=== PATIENT | female | born 1950 | race Caucasian/White ===

== ENCOUNTER 2020-05-04 07:04 | Outpatient (REF) | payer MEDICARE, SELFPAY ==
[2020-05-04 08:09] LABS: Alanine Aminotransferase 10 U/L (0-31); Anion Gap 9 (12-20); Aspartate Amino Transferase 18 U/L (5-31); Blood Urea Nitrogen 22 mg/dL (9-16); Calcium 8.7 mg/dL (8.4-10.2); Carbon Dioxide 32 mmol/L (22-29); Chloride 102 mmol/L (96-108); Cholesterol 208 mg/dL; Estimated Glomerular Filt Rate > 60; Glucose Fasting 108 mg/dL (60-99); HDL Cholesterol 60 mg/dL; LDL Cholesterol Calculated 132 mg/dl; Potassium 4.1 mmol/L (3.3-5.1); Sodium 139 mmol/L (135-145); Triglycerides 82 mg/dL
[2020-05-04 08:26] LABS: Vitamin D 25-OH Total 44.3 ng/mL (>30)
== END 2020-05-04 07:05 | disposition home or self-care (01) ==
LOC: HO.LAB 07:04
PROVIDERS: PCP Internal Medicine; Visit Provider Internal Medicine
DX: E78.5 Hyperlipidemia, unspecified (principal); M81.0 Age-related osteoporosis without current pathological fracture; I10 Essential (primary) hypertension
CPT/HCPCS: 36415; 80048; 80061; 82306; 84450; 84460

== ENCOUNTER 2020-10-02 09:35 | Outpatient (REF) | payer MEDICARE, SELFPAY ==
--- NOTE | ~2020-10-02 | MM_ITS ---
EXAMINATION: MM SCREENING DIGITAL BREAST TOMOSYNTHESIS, BILATERAL CLINICAL INFORMATION: Screening. Asymptomatic. The lifetime risk of breast cancer based on the Tyrer-Cuzick Model is 12%. COMPARISON: Mammography: 09/27/2019, 07/05/2018, 07/01/2017 TECHNIQUE: Digital breast tomosynthesis is performed in both the craniocaudal and mediolateral oblique views along with computer-aided detection (CAD). Synthesized 2D images are generated from the tomosynthesis. Additional exaggerated right CC view is provided. FINDINGS: The breasts are heterogeneously dense, which may obscure small masses (ACR BI-RADS breast composition Category c). There are no significant masses, abnormal calcifications, or other abnormalities. Parenchymal pattern is similar to prior studies. There is biopsy clip marker again noted mid 1:00 left breast. There are scattered coarse and some punctate round calcifications again noted. No significant changes. The axilla and skin contours are unremarkable. MM/MM tomosynthesis screening BI IMPRESSION: No mammographic evidence of malignancy. ASSESSMENT: BI-RADS 2: Benign RECOMMENDATION: Routine annual mammography screening. This patient's information was entered into a reminder system with a target due date for their next mammogram.
--- NOTE | ~2020-10-02 | MM_ITS ---
EXAMINATION: BONE DENSITOMETRY CLINICAL INDICATION: Age-related osteoporosis without current pathological fracture. COMPARISON: Previous BD dated 07/05/2018 and baseline BD dated 12/02/2007. TECHNIQUE: Using a inContact DXA System (software version: 13.1) manufactured by [employer], dual-energy x-ray absorptiometry was performed of the lumbar spine and left hip. The images are of good technical quality. Summary results are attached. FINDINGS: AP SPINE L1-L2 (excluding L3 and L4): The data of L1-L4 has been changed to exclude the L3 and L4 vertebral bodies, because degenerative changes at these levels may cause overestimation of lumbar spine density. Current: BMD 0.787 g/cm2, Z-score -1.8, T-score -3.2, osteoporosis, 7.3% decrease from previous, 13.9% decrease from baseline (<5% change is not significant). Prior: BMD 0.849 g/cm2. Baseline: BMD 0.914 g/cm2. LEFT FEMUR, NECK: Current: BMD 0.683 g/cm2, Z-score -1.1, T-score -2.6, osteoporosis. Prior: BMD 0.729 g/cm2. Baseline: BMD 0.797 g/cm2. LEFT FEMUR, TOTAL: Current: BMD 0.692 g/cm2, Z-score -1.4, T-score -2.5, osteoporosis, 6.6% decrease from previous, 12.0% decrease from baseline (<5% change is not significant). Prior: BMD 0.741 g/cm2. Baseline: BMD 0.786 g/cm2. IDENTIFIED RISK FACTORS: Osteoporosis, height loss, menopause. HISTORY OF FRACTURE: None listed. MEDICATIONS: Vitamin D, ERT/SERMS. MM/XR DEXA axial skeleton IMPRESSION: 1. DIAGNOSIS: Osteoporosis based on the lowest T-score value of -3.2 in the lumbar spine applying World Health Organization criteria. 2. 10-YEAR FRACTURE RISK PREDICTION, FRAX: Major osteoporotic fracture (clinical spine, forearm, hip or shoulder) 14.5%. Hip fracture 3.5%. 3. Treatment Recommendations: NOF guidelines recommend consideration for treatment in postmenopausal women and men age 50 and older presenting with the following: -A hip or vertebral (clinical or morphometric) fracture. -T-score less than or equal to -2.5 at the femoral neck or spine after appropriate evaluation to exclude secondary causes. -Low bone mass at the hip or spine and a 10-year fracture probability by FRAX of greater than or equal to 3% for hip fracture or greater than or equal to 20% for major osteoporotic fracture based on the [place] adapted WHO algorithm. 4. Other Recommendations: All treatment decisions require clinical judgment and consideration of individual patient factors, including patient preferences, comorbidities, previous drug use, risk factors not captured in the FRAX model (e.g. frailty, falls, vitamin D deficiency, increased bone turnover, interval significant decline in bone density) and possible under or overestimation of fracture risk by FRAX. Additional medical evaluation for secondary cause of low bone mineral density may be appropriate. FUTURE SCAN RECOMMENDATION: People with diagnosed cases of osteoporosis or at high risk for fracture should have regular bone mineral density tests. For patients eligible for Medicare, routine testing is allowed once every 2 years. The testing frequency can be increased to one year for patients who have rapidly progressing disease, those who are receiving or discontinuing medical therapy to restore bone mass, or have additional risk factors.
== END 2020-10-02 09:36 | disposition home or self-care (01) ==
LOC: HO.MAMMO 09:35
PROVIDERS: Visit Provider Internal Medicine
DX: Z12.31 Encounter for screening mammogram for malignant neoplasm of breast (principal); Z13.820 Encounter for screening for osteoporosis; M81.0 Age-related osteoporosis without current pathological fracture; Z78.0 Asymptomatic menopausal state; Z79.899 Other long term (current) drug therapy
CPT/HCPCS: 77063; 77067; 77080

== ENCOUNTER 2020-11-08 07:16 | Outpatient (REF) | payer MEDICARE, SELFPAY ==
[2020-11-08 11:34] LABS: Cholesterol 193 mg/dL; Glucose Fasting 80 mg/dL (60-99); HDL Cholesterol 48 mg/dL; LDL Cholesterol Calculated 123 mg/dl; Triglycerides 111 mg/dL
== END 2020-11-08 07:17 | disposition home or self-care (01) ==
LOC: HO.HMGCLDS 07:16
PROVIDERS: PCP Internal Medicine; Visit Provider Internal Medicine
DX: E78.5 Hyperlipidemia, unspecified (principal); M81.0 Age-related osteoporosis without current pathological fracture; R73.01 Impaired fasting glucose; Z78.0 Asymptomatic menopausal state
CPT/HCPCS: 36415; 80061; 82306; 82947

== ENCOUNTER 2021-03-09 19:50 | Emergency (ER) | payer MEDICARE, SELFPAY ==
[2021-03-09 20:19] VITALS: BP 109/74; PULSE 90; RESP 18; TEMP 36.6; O2SAT 99; BMI 25.9
--- NOTE | 2021-03-09 21:11 | ED_ITS ---
HPI - Eye Problem General Chief complaint: Eye Problems Stated complaint: eye contact in right eye Time Seen by Provider: 03/09/21 20:58 Source: patient Mode of arrival: ambulatory Limitations: no limitations History of Present Illness HPI Narrative: patient comes to the ED c/o having a hard contact lense stuck in her eye. Patient states that this is a new contact lens. Patient try using the suction cup to remove it but has unable to do so patient denies any pain, just the discomfort of the contact lens. Related Data Home Medications Medication Instructions Recorded Confirmed cholecalciferol (vitamin D3) 25 25 mcg PO DAILY 05/07/20 11/12/20 mcg (1,000 unit) capsule vit A 1,000 unit-C 200 mg-E 60 1 tab PO DAILY 05/07/20 11/12/20 unit-lutein 2 mg and minerals tablet (I-Viraj) multivitamin 1 tab PO DAILY 11/12/20 11/12/20 Previous Rx's Medication Instructions Recorded raloxifene 60 mg tablet 60 mg PO DAILY #90 tab 08/06/20 ofloxacin 0.3 % eye drops (Ocuflox) 1 drp OPHTHALMIC (EYE) QID #5 ml 03/09/21 Allergies Allergy/AdvReac Type Severity Reaction Status Date / Time No Known Allergies Allergy Verified 11/12/20 09:55 Review of Systems Review of Systems: Constitutional : No Weight loss, No Fever, No Chills, No Night Sweats, No Fatigue, No Malaise ENT/Mouth : No Hearing loss, No Ear Pain, No Nasal Congestion, No Sinus Pain, No Hoarseness, No sore throat, No Rhinorrhea, No Swallowing Difficulty Eyes: No Eye Pain, No Swelling, redness in the right eye, difficult to visualize the contact lens Cardiovascular : No Chest Pain, No SOB, No Dyspnea on Exertion, No Orthopnea, No Edema, No Palpitations Respiratory : No Cough, No Sputum, No Wheezing, No Smoke Exposure, No Dyspnea Gastrointestinal : No Nausea, No Vomiting, No Diarrhea, No Constipation, No abdo chica Pain, No Hematochezia, No Melena Genitourinary : no irregular bleeding, No Dysuria, No Urinary Frequency, No Hematuria, No Urinary Incontinence, No Urgency, No Flank Pain, No Urinary Flow Changes, No Hesitancy Musculoskeletal : No joint pain, No Myalgias, No Joint Swelling Skin : No Skin Lesions, No rash Neuro : No Weakness, No Numbness, No Paresthesias, No Loss of Consciousness, No Dizziness, No Headache Psych : No Anxiety/Panic, No Depression, No SI/HI/AH/VH, No Social Issues, Heme/Lymph: No Bruising, No Bleeding,No Lymphadenopathy Endocrine : No Polyuria, No Polydipsia, No Temperature Intolerance [facility] Past Medical History Medical History Dyslipidemia Essential tremor Impaired fasting glucose Keratoconus of both eyes Osteoporosis Surgical History History of bilateral breast biopsy Family History Family History (Updated 11/12/20 @ 09:36 by Lalitha Uribe CMA) Father CAD (coronary artery disease) Acute myocardial infarction Mother Breast cancer Uterine cancer Hypothyroidism Sister HTN (hypertension) Maternal Uncle Diabetes mellitus Paternal Uncle Diabetes mellitus Social History Social History (Updated 05/06/20 @ 09:52 by Lalitha Uribe CMA) Housing: House Alcohol intake: never Patient Tobacco Use Status: Never used Tobacco e-Cigarette/Vaping Use: Never Used Second Hand Smoke Exposure: No Advance Directives: No Advance Directives Information Provided: Yes service: No Current occupational status: retired Physical Exam Vital Signs: Vital Signs: Last Vital Signs Temp 97.8 F 03/09/21 20:19 Pulse 90 03/09/21 20:19 Resp 18 03/09/21 20:19 BP 109/74 03/09/21 20:19 Pulse Ox 99 03/09/21 20:19 BMI result Body Mass Index 25.9 Const: Other: Appearance: Alert. Oriented X3. No acute distress. Eyes: Pupils equal, round and reactive to light. Right eye balls conjunctival injection, seems that pt is developing conjunctivities. Fluorescein stain was applied to the eye, I do not see the more of a contact lens I do not think the contact lens it is in the eye ENT: Pharynx normal. Neck: Normal inspection. Neck supple. No lymph nodes noted. No crepitus CVS: Normal heart rate and rhythm. Pulses normal. Normal S1 and S2 Respiratory: No respiratory distress. Breath sounds normal. No Wheezing. No rales Abdomen: Soft and nontender. No rigidity. No distention. good BS x4 Skin: Skin warm and dry. Normal skin color. Normal skin turgor. Extremities: No lower extremity edema. No lower extremity edema. No Lacerations. No Rash Neuro: Oriented X 3. No motor deficit. No sensory deficit. Moving all extermities. No slurred speech. Course Course Course Narrative: I discussed with the patient that I could not visualize the contact lens in her eye. Patient is adamant that full contact lens is in her eye. However, patient states that her vision is at baseline, just when she does not have contact lenses in. Patient will follow-up with her customer security clerk tomorrow. Ofloxacin was sent to patient's pharmacy Discharge Plan Discharge Clinical Impression: Conjunctivitis, Sensation of foreign body in eye Patient Disposition: Home, Self-Care Instructions: Conjunctivitis (ED) Additional Instructions: Please follow-up with your of customer security clerk and primary care physician tomorrow. If you have any worsening or new symptoms, please return to the emergency room or call 911 Prescriptions: New ofloxacin [Ocuflox] 0.3 % drops 1 drp ophthalmic (eye) QID Qty: 5 RF: 0 No Action raloxifene 60 mg tablet 60 mg PO DAILY Qty: 90 RF: 2 cholecalciferol (vitamin D3) 25 mcg (1,000 unit) capsule 25 mcg PO DAILY RF: 0 I-Viraj 1,000 unit-200 mg-60 unit-2 mg tablet 1 tab PO DAILY RF: 0 multivitamin Tablet 1 tab PO DAILY RF: 0
[2021-03-09] MEDS: Tetracaine HCl/PF 0.5% Oph Sol 4 ML DROPS 3 DROP EYE-RIGHT (21:35)
[2021-03-09] MEDS: Fluorescein Sodium STRIP 1 STRIP EYE-RIGHT (21:36)
== END 2021-03-09 21:59 | disposition home or self-care (01) ==
PROVIDERS: Emergency Provider Emergency Medicine; PCP Internal Medicine
DX: H10.9 Unspecified conjunctivitis (principal)
CPT/HCPCS: 99283

== ENCOUNTER 2021-10-03 10:10 | Outpatient (REF) | payer MEDICARE, SELFPAY ==
--- NOTE | ~2021-10-03 | MM_ITS ---
EXAMINATION: MM SCREENING DIGITAL BREAST TOMOSYNTHESIS, BILATERAL CLINICAL INFORMATION: Screening. Asymptomatic. The lifetime risk of breast cancer based on the Tyrer-Cuzick Model is 12%. COMPARISON: Mammography: 10/02/2020, 03/29/2019, 07/05/2018 TECHNIQUE: Digital breast tomosynthesis is performed in both the craniocaudal and mediolateral oblique views along with computer-aided detection (CAD). Synthesized 2D images are generated from the tomosynthesis. FINDINGS: The breasts are heterogeneously dense, which may obscure small masses (ACR BI-RADS breast composition Category c). There are no significant masses, abnormal calcifications, or other abnormalities. There is biopsy clip marker again seen 12:30 o'clock position left breast. There are benign grouped coarse calcifications central right breast. Other scattered benign round calcifications are again seen. No significant changes. MM/MM tomosynthesis screening BI IMPRESSION: No mammographic evidence of malignancy. ASSESSMENT: BI-RADS 2: Benign RECOMMENDATION: Routine annual mammography screening. This patient's information was entered into a reminder system with a target due date for their next mammogram.
== END 2021-10-03 10:11 | disposition home or self-care (01) ==
LOC: HO.MAMMO 10:10
PROVIDERS: PCP Internal Medicine; Visit Provider Internal Medicine
DX: Z12.31 Encounter for screening mammogram for malignant neoplasm of breast (principal)
CPT/HCPCS: 77063; 77067

== ENCOUNTER 2021-11-13 06:36 | Outpatient (REF) | payer MEDICARE, SELFPAY ==
[2021-11-13 12:20] LABS: Estimated Average Glucose 100 mg/dL; Hemoglobin A1c % 5.1 %
[2021-11-13 12:39] LABS: Alanine Aminotransferase 10 U/L (0-31); Aspartate Amino Transferase 16 U/L (5-31); Cholesterol 211 mg/dL; Glucose Fasting 84 mg/dL (60-99); HDL Cholesterol 50 mg/dL; LDL Cholesterol Calculated 141 mg/dl; Triglycerides 100 mg/dL
[2021-11-13 12:47] LABS: Vitamin D 25-OH Total 47.4 ng/mL (>30)
== END 2021-11-13 06:37 | disposition home or self-care (01) ==
LOC: HO.HMGCLDS 06:36
PROVIDERS: PCP Internal Medicine; Visit Provider Internal Medicine
DX: M81.0 Age-related osteoporosis without current pathological fracture (principal); N95.8 Other specified menopausal and perimenopausal disorders; R73.01 Impaired fasting glucose; E78.5 Hyperlipidemia, unspecified
CPT/HCPCS: 36415; 80061; 82306; 82947; 83036; 84450; 84460

== ENCOUNTER 2022-10-08 09:43 | Outpatient (REF) | payer MEDICARE, SELFPAY ==
--- NOTE | ~2022-10-08 | MM_ITS ---
EXAMINATION: BONE DENSITOMETRY CLINICAL INDICATION: Age-related osteoporosis without current pathological fracture. COMPARISON: Previous BD dated 10/02/2020 and baseline BD dated 12/02/2007. TECHNIQUE: Using a [employer]ference DXA System (software version: 13.1) manufactured by [employer], dual-energy x-ray absorptiometry was performed of the lumbar spine and left hip. The images are of good technical quality. Summary results are attached. FINDINGS: LEFT FEMUR, NECK: Current: BMD 0.689 g/cm2, Z-score -1.1, T-score -2.5, osteoporosis. Prior: BMD 0.683 g/cm2. Baseline: BMD 0.797 g/cm2. LEFT FEMUR, TOTAL: Current: BMD 0.709 g/cm2, Z-score -1.2, T-score -2.4, osteopenia, 2.5% increase from previous, 9.8% decrease from baseline (<5% change is not significant). Prior: BMD 0.692 g/cm2. Baseline: BMD 0.786 g/cm2. AP SPINE L1-L4: Current: BMD 1.015 g/cm2, Z-score -0.1, T-score -1.4, osteopenia, 5.5% increase from previous, 7.3% decrease from baseline (<5% change is not significant). Prior: BMD 0.962 g/cm2. Baseline: BMD 1.095 g/cm2. IDENTIFIED RISK FACTORS: Osteoporosis, height loss, menopause. HISTORY OF FRACTURE: None listed. MEDICATIONS: Multivitamins. MM/XR DEXA axial skeleton IMPRESSION: 1. DIAGNOSIS: Osteoporosis based on the lowest T-score value of -2.5 in the femoral neck applying World Health Organization criteria. 2. 10-YEAR FRACTURE RISK PREDICTION, FRAX: According to the guidelines, FRAX calculation should only be performed on patients in the osteopenia bone density category. Therefore, FRAX was not performed on this patient. 3. Treatment Recommendations: NOF guidelines recommend consideration for treatment in postmenopausal women and men age 50 and older presenting with the following: -A hip or vertebral (clinical or morphometric) fracture. -T-score less than or equal to -2.5 at the femoral neck or spine after appropriate evaluation to exclude secondary causes. -Low bone mass at the hip or spine and a 10-year fracture probability by FRAX of greater than or equal to 3% for hip fracture or greater than or equal to 20% for major osteoporotic fracture based on the [place] adapted WHO algorithm. 4. Other Recommendations: All treatment decisions require clinical judgment and consideration of individual patient factors, including patient preferences, comorbidities, previous drug use, risk factors not captured in the FRAX model (e.g. frailty, falls, vitamin D deficiency, increased bone turnover, interval significant decline in bone density) and possible under or overestimation of fracture risk by FRAX. Additional medical evaluation for secondary cause of low bone mineral density may be appropriate. FUTURE SCAN RECOMMENDATION: People with diagnosed cases of osteoporosis or at high risk for fracture should have regular bone mineral density tests. For patients eligible for Medicare, routine testing is allowed once every 2 years. The testing frequency can be increased to one year for patients who have rapidly progressing disease, those who are receiving or discontinuing medical therapy to restore bone mass, or have additional risk factors.
--- NOTE | ~2022-10-08 | MM_ITS ---
EXAMINATION: MM SCREENING DIGITAL BREAST TOMOSYNTHESIS, BILATERAL CLINICAL INFORMATION: Screening. Asymptomatic. The lifetime risk of breast cancer based on the Tyrer-Cuzick Model is 13.1%. COMPARISON: Mammography: This study is compared with prior exams dating back to 2019. TECHNIQUE: Digital breast tomosynthesis is performed in both the craniocaudal and mediolateral oblique views along with computer-aided detection (CAD). Synthesized 2D images are generated from the tomosynthesis. FINDINGS: There are scattered areas of fibroglandular density (ACR BI-RADS breast composition Category b). There is a tissue marker in the left breast from prior benign percutaneous biopsy. There are a few, unchanged, coarse, benign calcifications in the central portion of the right breast. There are no significant masses, abnormal calcifications, or other abnormalities. MM/MM tomosynthesis screening BI IMPRESSION: No mammographic evidence of malignancy. ASSESSMENT: BI-RADS BI-RADS 2 - Benign Findings RECOMMENDATION: Routine annual mammography screening. 1 year F/U This examination should not preclude the clinical evaluation of a suspicious palpable abnormality. This patient's information was entered into a reminder system with a target due date for their next mammogram.
== END 2022-10-08 09:44 | disposition home or self-care (01) ==
LOC: HO.MAMMO 09:43
PROVIDERS: PCP Internal Medicine; Visit Provider Internal Medicine
DX: Z12.31 Encounter for screening mammogram for malignant neoplasm of breast (principal); Z13.820 Encounter for screening for osteoporosis; M81.0 Age-related osteoporosis without current pathological fracture; Z78.0 Asymptomatic menopausal state
CPT/HCPCS: 77063; 77067; 77080

== ENCOUNTER → 2022-10-08 10:30 | Outpatient (BNV) | payer MEDICARE, SELFPAY | PROVIDERS: PCP Internal Medicine; Visit Provider Radiology Diagnostic Radiology | DX: Z12.31 Encounter for screening mammogram for malignant neoplasm of breast (principal) | CPT/HCPCS: 77063; 77067; 77080 ==

== ENCOUNTER 2022-11-13 07:30 | Outpatient (REF) | payer MEDICARE, SELFPAY ==
[2022-11-13 11:53] LABS: Alanine Aminotransferase 10 U/L (0-31); Anion Gap 10 (12-20); Aspartate Amino Transferase 17 U/L (5-31); Blood Urea Nitrogen 19 mg/dL (9-16); Calcium 9.3 mg/dL (8.4-10.2); Carbon Dioxide 31 mmol/L (22-29); Chloride 103 mmol/L (96-108); Cholesterol 217 mg/dL (<200); Estimated Glomerular Filt Rate > 60; Glucose Fasting 81 mg/dL (60-99); HDL Cholesterol 50 mg/dL (>40); LDL Cholesterol Calculated 148 mg/dL (<100); Potassium 3.9 mmol/L (3.3-5.1); Sodium 140 mmol/L (135-145); Triglycerides 99 mg/dL (<150)
[2022-11-13 12:15] LABS: Vitamin D 25-OH Total 62.3 ng/mL (>30)
== END 2022-11-13 07:31 | disposition home or self-care (01) ==
LOC: HO.HMGCLDS 07:30
PROVIDERS: PCP Internal Medicine; Visit Provider Internal Medicine
DX: R73.01 Impaired fasting glucose (principal); M81.0 Age-related osteoporosis without current pathological fracture; E78.5 Hyperlipidemia, unspecified; Z78.0 Asymptomatic menopausal state
CPT/HCPCS: 36415; 80048; 80061; 82306; 84450; 84460

== ENCOUNTER 2022-11-17 10:46 | Outpatient (AMB) | payer MEDICARE, SELFPAY ==
--- NOTE | 2022-11-17 11:31 | A.OFFPC_ITS ---
Vital Signs 11/17/22 11:41 Height 5 ft 4 in Weight 169 lb BMI 29.0 BP 100/80 Blood Pressure Location Lt brachial Position Sitting Pulse 65 Pulse Source Pulse Oximeter Pulse Oximetry (%) 96 Oxygen Delivery Method Room Air Intake Visit Reasons: PE Intake Note: Pt is here today for her PE Allergies No Known Allergies Allergy (Verified 11/17/22 11:53) Medication List - Last Reconciled 11/17/22 by Aicha Fuentes MD multivitamin 1 tab PO DAILY multivitamin with iron (Daily Vites/Iron tablet) 1 tab PO DAILY primidone 50 mg PO BEDTIME vit A,C,X-U7-tado-szf-sds-eydp 1000 unit-300mg -100 unit-2 mg 1,000 unit-300mg - 100 unit-2 mg tabs PO Tobacco use date assessed: 11/17/22 Fall risk assessment: No Falls in past year Last assessed Fall Risk: 11/17/22 Dental Screening Dental Screen Date: 11/17/22 Did you have a dental visit in the last 12 months?: No Was dental information given to patient?: Patient has dentist HPI PE HPI Details 71-year-old lady here today for physical exam. She has osteoporosis previously on Reclast, has dyslipidemia, prediabetes and has essential tremors followed by [facility] neurology. She had recent bone density scan done October 08 which showed presence of mild osteoporosis in left femoral neck, and improving bone density in both left femur and lumbar spine. Has not had any recent fractures. She currently sees Dr. Brunson for deny exam, essential tremors are better on primidone, followed at [facility] neurology [facility] Medical History Keratoconus of both eyes Essential tremor Impaired fasting glucose Osteoporosis Dyslipidemia Surgical History History of bilateral breast biopsy Family History Father CAD (coronary artery disease) Acute myocardial infarction Mother Breast cancer Uterine cancer Hypothyroidism Sister HTN (hypertension) Maternal Uncle Diabetes mellitus Paternal Uncle Diabetes mellitus Social History Housing: House Alcohol intake: never Patient Tobacco Use Status: Never used Tobacco e-Cigarette/Vaping Use: Never Used Second Hand Smoke Exposure: No service: No Current occupational status: retired Cognitive needs: No Hearing needs: No Vision needs: No Questionnaire PHQ-9 Over the last 2 weeks, how often have you been bothered by any of the following problems? 1. Little interest or pleasure in doing things: not at all 2. Feeling down, depressed, or hopeless: not at all 3. Trouble falling or staying asleep, or sleeping too much: not at all 4. Feeling tired or having little energy: not at all 5. Poor appetite or overeating: not at all 6. Feeling bad about yourself - or that you are a failure or have let yourself or your family down: not at all 7. Trouble concentrating on things, such as reading the newspaper or watching television: not at all 8. Moving or speaking so slowly that other people could have noticed. Or the opposite - being so fidgety or restless that you have been moving around a lot more than usual: not at all 9. Thoughts that you would be better off or of hurting yourself in some way: not at all Total score: 0 Depression Screening Interpretation: Negative 63340 - PHQ-9 Billing: Yes Source: Developed by Drs. Myke Kamara, Olga Narayanan, Haja Hugo and colleagues, with an educational alecia from [employer]. Thrive Questionnaire Date Thrive assessed: 11/17/22 I am a: Patient What is your living situation today?: I have a steady place to live Within the past 12 months, did the food you bought not last and you didn't have the money to get more?: Never true Within the past 12 months, did you worry whether your food would run out before you got money to buy more?: Never true Do you have trouble paying for medicines?: No Do you have trouble getting transportation to medical appointments?: No Do you have trouble paying your heating and electricity bill?: No Do you have trouble taking care of your child, family member or friend?: No Do you have trouble with day-to-day activities such as bathing, preparing meals, shopping, managing finances, etc.?: No Are you currently unemployed and looking for a job?: No Are you interested in more education?: No AUDIT C Alcohol Use Questionnaire (AUDIT-C) 1. How often do you have a drink containing alcohol?: Never Total Score: 0 JASE-7 AMB Questionnaire JASE-7 Date JASE - 7 assessed: 11/17/22 Feeling nervous, anxious, or on edge: 0 = Not at all Not being able to stop or control worryin = Not at all Worrying too much about different things: 0 = Not at all Trouble relaxin = Not at all Being so restless that it is hard to sit still: 0 = Not at all Becoming easily annoyed or irritable: 0 = Not at all Feeling afraid as if something awful might happen: 0 = Not at all Total JASE-7 score (0-4 normal; 5-9 mild; 10-14 moderate; 15-21 severe): 0 Source: Developed by Drs. Myke Kamara, Olga Narayanan, Haja Hugo and colleagues, with an educational alecia from [employer]. Review of Systems Const Denies body aches, Denies fatigue, Denies fever(s), Denies headache(s) and Denies weakness ENT Reports Normal hearing present, Denies dizziness, Denies headache(s), Denies nasal congestion, Denies nasal discharge and Denies sore throat Card Denies chest pain, Denies lightheadedness, Denies palpitations and Denies dyspnea Resp Denies chest congestion, Denies cough, Denies dyspnea and Denies wheezing GI Denies abdominal pain, Denies change in bowel habits and Denies heartburn Reports no additional complaints Musc Denies back pain, Denies arthralgias, Denies joint swelling and Reports stiffness Skin/Breast Denies pruritus, Denies lesions, Denies new lesions, Denies rash, Denies unusual bruising and Denies wounds Neuro Reports Normal hearing present, Denies dizziness, Denies headache(s), Denies Sensory deficit (Neuro) and Denies weakness Psych Reports no additional complaints Endo Denies fatigue, Denies polydipsia, Denies polyuria and Denies palpitations [place]/Lymph Denies easy bruising Aller/Immun Denies seasonal rhinorrhea and Denies wheezing Physical exam (Primary Care) Vital Signs: Last Vital Signs Pulse 65 11/17/22 11:41 BP 100/80 11/17/22 11:41 Pulse Ox 96 11/17/22 11:41 Oxygen Delivery Method Room Air 11/17/22 11:41 BMI result Body Mass Index 29.0 Tobacco/Smoking Status: Tobacco use Status Tobacco use date assessed 11/17/22 11/17/22 11:33 Patient Tobacco Use Status Never used Tobacco 11/17/22 11:33 e-Cigarette/Vaping Use Never Used 11/17/22 11:33 PHQ-9: PHQ-9 Score PHQ-9: Total score 0 11/17/22 11:54 Depression Screening Interpretation: Negative Thrive Assessment: Date of Thrive Assessment Date Thrive assessed 11/17/22 11/17/22 11:42 Const General: cooperative, healthy appearing, comfortable and no acute distress Nutritional Appearance: overweight Orientation/consciousness: patient oriented x3 Limitations: no limitations HENMT Mouth: Normal oral and palatal mucosa present and moist mucous membranes Eyes General: appearance normal, both eyes and all related structures Neck Neck: Yes full ROM, Yes no lymphadenopathy and Yes supple Thyroid: Thyroid normal Chest Chest palpation & inspection: normal inspection of the chest Breast/axilla palpation: normal palpation of the breasts Resp Effort & Inspection: normal respiratory effort and able to speak in complete sentences Auscultation: clear to auscultation bilaterally Cardio Rate: regular rate Rhythm: regular rhythm Heart sounds: S1 normal heart sound present and S2 normal heart sound present GI Palpation (GI): Soft to palpation, nontender and no guarding Auscultation: normal bowel sounds Other: Declined pelvic exam Neuro General: patient oriented x3, gait normal, tone normal, moves all extremities, Normal light touch and pain sensation, no focal motor deficits and CN's II-XI intact bilaterally Cranial nerves: Yes Normal hearing present Sensory Exam: No Sensory deficit (Neuro) Extrem General: Yes full ROM, Yes no joint enlargement, Yes no pedal edema and Yes normal gait Psych Appearance: grossly normal and well kempt Mental Status: mental status grossly normal Speech and movement: Normal speech and movement present Affect: normal affect Attitude: cooperative Results Reviewed Results Reviewed: ENTERED: 11/13/22 JUANITO SMITH: ORDERED: Met Prof Fast, AST, ALT, Lipid Panel, Vitamin D 25-OH Test Result Flag Reference Site Sodium 140 135-145 mmol/L Potassium 3.9 3.3-5.1 mmol/L CL 103 96-108 mmol/L CO2 31 H 22-29 mmol/L Gap 10 L 12-20 BUN 19 H 9-16 mg/dL Creat 0.90 0.5-1.4 mg/dL EGFR > 60 NOTE: For -[place]i individuals, multiply the result by 1.210. Chronic Kidney Disease: Estimated GFR < 60 mL/min/1.73m2 Severe Kidney Disease: Estimated GFR < 15 mL/min/1.73m2 FBS 81 60-99 mg/dL CA 9.3 # 8.4-10.2 mg/dL AST (GOT) 17 5-31 U/L ALT (GPT) 10 0-31 U/L Triglyceride 99 <150 mg/dL Desirable Triglyceride: less than 150 mg/dL Borderline High Triglyceride 150-199 mg/dL High Triglyceride: 200-499 mg/dL Very High Triglyceride: greater than or equal to 5OO mg/dL Cholesterol 217 H <200 mg/dL Desirable Cholesterol: less than 200 mg/dL Borderline High Cholesterol: 200-239 mg/dL High Cholesterol: greater than 239 mg/dL LDL Calculated 148 H <100 mg/dL Desirable LDL: less than 100 mg/dL Near Optimal/Above Optimal LDL: 110-129 mg/dL Borderline High LDL: 130-159 mg/dL High LDL: 160-189 mg/dL Very High LDL: greater than or equal to 190 mg/dL HDL 50 >40 mg/dL Desirable HDL: greater than 40 mg/dL Note: This HDL assay may give artificially low results in patients with liver disease. Vit D 25-OH Tot 62.3 >30 ng/mL Health Based Reference Values* < 20 ng/mL Deficient 20-30 ng/mL Insufficient > 30 ng/mL Sufficient Assessment and Plan Assessment & Plan (1) Keratoconus of both eyes: Code(s): H18.603 - Keratoconus, unspecified, bilateral Plan: Sees Dr. Brunson (2) Essential tremor: Code(s): G25.0 - Essential tremor Plan: Currently controlled with (3) Impaired fasting glucose: Code(s): R73.01 - Impaired fasting glucose (4) Osteoporosis: Code(s): M81.0 - Age-related osteoporosis without current pathological fracture Plan: Improving bone density seen on recent bone density scan. Continue with doing regular weight-bearing exercise, take adequate calcium from dietary sources, and continue with taking vitamin-D 3 supplements at least 2000 units daily. Will repeat another bone density scan next year together with next screening mammogram in October 2023 (5) Dyslipidemia: Code(s): E78.5 - Hyperlipidemia, unspecified Plan: Reviewed recent fasting lipid profile with patient with higher levels of LDL cholesterol as compared to last check . Continue with following a low- cholesterol diet and regular exercise, at least 30 minutes 3 to 4 times a week. Advised patient to make healthy food choices, eat more fruits, vegetables, whole grains, wild caught fish and low-fat dairy. Limit amount of meat and fried or fatty food products, as well as processed foods and fast foods. Follow-up scheduled with repeat fasting lipid panel in months. (6) Annual visit for general adult medical examination with abnormal findings: Code(s): Z00. - Encounter for general adult medical examination with abnormal findings Plan: Reviewed recent fasting lab results with patient. Continue regular dental visit every 6 months and regular eye exams, at least every 2 years. Take adequate calcium in diet and vitamin-D 3 at 2000 IU per cap once a day, in addition to weight-bearing exercises to help maintain good muscle tone and weight control. Instructed to do self-breast exam, and continue with yearly mammogram, currently up-to-date. Up-to-date with her bone density scan done 10/08/2022 which showed improvement in her bone density in her lumbar spine and left femur, currently off Reclast. Reminded to get her COVID booster and yearly flu shot, up-to-date with her pneumonia vaccine, Tdap and shingles vaccination Coding Level of Care Code Est Pt Prev Care >65y(20293) Diagnoses Keratoconus of both eyes H18.603 Essential tremor G25.0 Impaired fasting glucose R73.01 Osteoporosis M81.0 Dyslipidemia E78.5 Annual visit for general adult medical examination with abnormal findings Z00.01
[2022-11-17 11:41] VITALS: BP 100/80; PULSE 65; O2SAT 96; BMI 29.0
== END 2022-11-17 12:14 | disposition home or self-care (01) ==
PROVIDERS: Visit Provider Internal Medicine
DX: H18.603 Keratoconus, unspecified, bilateral (principal); G25.0 Essential tremor; R73.01 Impaired fasting glucose; M81.0 Age-related osteoporosis without current pathological fracture; E78.5 Hyperlipidemia, unspecified; Z00.01 Encounter for general adult medical examination with abnormal findings
CPT/HCPCS: 99397

== ENCOUNTER 2023-10-13 09:39 | Outpatient (REF) | payer MEDICARE, SELFPAY ==
--- NOTE | ~2023-10-13 | MM_ITS ---
EXAMINATION: MM SCREENING DIGITAL BREAST TOMOSYNTHESIS, BILATERAL CLINICAL INFORMATION: Screening. Asymptomatic. COMPARISON: Mammography: This study is compared with prior exams dating back to 2019. TECHNIQUE: Digital breast tomosynthesis is performed in both the craniocaudal and mediolateral oblique views along with computer-aided detection (CAD). Synthesized 2D images are generated from the tomosynthesis. FINDINGS: The breasts are heterogeneously dense, which may obscure small masses (ACR BI-RADS breast composition Category c). There are no significant masses, abnormal calcifications, or other abnormalities. There is a biopsy tissue marker in the left breast. Few, bilateral, coarse, benign calcifications are present. MM/MM tomosynthesis screening BI IMPRESSION: No mammographic evidence of malignancy. ASSESSMENT: BI-RADS BI-RADS 2 - Benign Findings RECOMMENDATION: Routine annual mammography screening. 1 year F/U This examination should not preclude the clinical evaluation of a suspicious palpable abnormality. This patient's information was entered into a reminder system with a target due date for their next mammogram.
== END 2023-10-13 09:40 | disposition home or self-care (01) ==
LOC: HO.MAMMO 09:39
PROVIDERS: PCP Internal Medicine; Visit Provider Internal Medicine
DX: Z12.31 Encounter for screening mammogram for malignant neoplasm of breast (principal)
CPT/HCPCS: 77063; 77067

== ENCOUNTER → 2023-10-13 10:00 | Outpatient (BNV) | payer MEDICARE, SELFPAY | PROVIDERS: PCP Internal Medicine; Visit Provider Radiology Diagnostic Radiology | DX: Z12.31 Encounter for screening mammogram for malignant neoplasm of breast (principal) | CPT/HCPCS: 77063; 77067 ==

== ENCOUNTER 2023-12-01 08:18 | Outpatient (AMB) | payer MEDICARE, SELFPAY ==
--- NOTE | 2023-12-01 08:34 | MHC.PC.OV ---
Vital Signs 12/01/23 08:42 Height 5 ft 3 in Weight 175 lb BMI 31.0 BP 106/70 Blood Pressure Location Lt brachial Position Sitting Pulse 100 Pulse Source Pulse Oximeter Pulse Oximetry (%) 95 Oxygen Delivery Method Room Air Intake Visit Reasons: PE Intake Note: Pt is here today for her PE Last mammogram 10/13/23, bone density scan 10/08/22, cologuard 01/23/22 Allergies No Known Allergies Allergy (Verified 12/01/23 08:54) Medication List - Last Reconciled 12/01/23 by Aicha Fuentes MD multivitamin with iron (Daily Vites/Iron tablet) 1 tab PO DAILY primidone 50 mg PO BEDTIME vit A,C,T-A9-tnwg-ipl-soi-obyj 1000 unit-300mg -100 unit-2 mg 1,000 unit-300mg -100 unit-2 mg tabs PO Tobacco use date assessed: 12/01/23 Fall risk assessment: No Falls in past year Last assessed Fall Risk: 12/01/23 Dental Screening Dental Screen Date: 12/01/23 Did you have a dental visit in the last 12 months?: No Did you have a dental problem in the last 6 months where you did not have access to dental care?: No Was dental information given to patient?: Patient has dentist HPI PE HPI Details 72 year-old lady here today for physical exam. She has osteoporosis and received Reclast 07/2021, as well as alendronate in distant past, with last bone density scan done October 08 showing presence of mild osteoporosis in left femoral neck, and improving bone density in both left femur and lumbar spine. Has not had any recent fractures . Repeat bone density due again in 2024. She was being seen at [facility] who recommended that that since results were stable, no further medical treatment at this time and would recommend a follow-up bone density every 2 years. .She has dyslipidemia, prediabetes , and has essential tremors, better on primidone, followed by [facility] neurology. She currently sees Dr. Brunson for her eye exam and follow-up of her keratoconus, and was told that she is beginning cataracts in her eyes Her last mammogram was 10/13/23, bone density scan 10/08/22. She also has had an InSure One Fecal Globin test done 01/21/2022 which came back negative, and a Cologuard test done in 09/24/2021 which came back negative.. [facility] Medical History Keratoconus of both eyes Essential tremor Impaired fasting glucose Osteoporosis Dyslipidemia Surgical History History of bilateral breast biopsy Family History Father CAD (coronary artery disease) Acute myocardial infarction Mother Breast cancer Uterine cancer Hypothyroidism Sister HTN (hypertension) Maternal Uncle Diabetes mellitus Paternal Uncle Diabetes mellitus Social History Housing: House Alcohol intake: never Patient Tobacco Use Status: Never used Tobacco e-Cigarette/Vaping Use: Never Used Second Hand Smoke Exposure: No service: No Current occupational status: retired Cognitive needs: No Hearing needs: No Vision needs: No Questionnaire PHQ-9 Over the last 2 weeks, how often have you been bothered by any of the following problems? 1. Little interest or pleasure in doing things: not at all 2. Feeling down, depressed, or hopeless: not at all 3. Trouble falling or staying asleep, or sleeping too much: not at all 4. Feeling tired or having little energy: not at all 5. Poor appetite or overeating: not at all 6. Feeling bad about yourself - or that you are a failure or have let yourself or your family down: not at all 7. Trouble concentrating on things, such as reading the newspaper or watching television: not at all 8. Moving or speaking so slowly that other people could have noticed. Or the opposite - being so fidgety or restless that you have been moving around a lot more than usual: not at all 9. Thoughts that you would be better off or of hurting yourself in some way: not at all Total score: 0 Depression Screening Interpretation: Negative Depression Screening Done: Yes 65436 - PHQ-9 Billing: Yes Source: Developed by Drs. Myke Kamara, Olga Narayanan, Haja Hugo and colleagues, with an educational alecia from [employer]. Thrive Questionnaire Date Thrive assessed: 12/01/23 I am a: Patient What is your living situation today?: I have a steady place to live Within the past 12 months, did the food you bought not last and you didn't have the money to get more?: Never true Within the past 12 months, did you worry whether your food would run out before you got money to buy more?: Never true Do you have trouble paying for medicines?: No Do you have trouble getting transportation to medical appointments?: No Do you have trouble paying your heating and electricity bill?: No Do you have trouble taking care of your child, family member or friend?: No Do you have trouble with day-to-day activities such as bathing, preparing meals, shopping, managing finances, etc.?: No Are you interested in more education?: No Please select the resources that you would like help with: None Currently or been in a relationship where the following occur: No concerns reported THRIVE Score: 0 AUDIT C Alcohol Use Questionnaire (AUDIT-C) 1. How often do you have a drink containing alcohol?: Never Total Score: 0 JASE-7 AMB Questionnaire JASE-7 Date JASE - 7 assessed: 12/01/23 Feeling nervous, anxious, or on edge: 0 = Not at all Not being able to stop or control worryin = Not at all Worrying too much about different things: 0 = Not at all Trouble relaxin = Not at all Being so restless that it is hard to sit still: 0 = Not at all Becoming easily annoyed or irritable: 0 = Not at all Feeling afraid as if something awful might happen: 0 = Not at all Total JASE-7 score (0-4 normal; 5-9 mild; 10-14 moderate; 15-21 severe): 0 Source: Developed by Drs. Myke Kamara, Haja Arellano and colleagues, with an educational alecia from [employer]. JASE-7 Assessment Billing JASE-7 Assessment Tool: JASE-7 Assessment 63449 Review of Systems Const Denies body aches, Denies fatigue, Denies fever(s), Denies headache(s) and Denies weakness ENT Reports Normal hearing present, Denies dizziness, Denies headache(s), Denies nasal congestion, Denies nasal discharge and Denies sore throat Card Denies chest pain, Denies lightheadedness, Denies palpitations and Denies dyspnea Resp Denies chest congestion, Denies cough, Denies dyspnea and Denies wheezing GI Denies abdominal pain, Denies change in bowel habits and Denies heartburn Reports no additional complaints Musc Denies back pain, Denies arthralgias, Denies joint swelling and Reports stiffness Skin/Breast Denies pruritus, Denies lesions, Denies new lesions, Denies rash, Denies unusual bruising and Denies wounds Neuro Reports Normal hearing present, Denies dizziness, Denies headache(s), Denies Sensory deficit (Neuro), Reports tremor(s) (Controlled on primidone) and Denies weakness Psych Reports no additional complaints Endo Denies fatigue, Denies polydipsia, Denies polyuria and Denies palpitations Linden/Lymph Denies easy bruising Aller/Immun Denies seasonal rhinorrhea and Denies wheezing Physical exam (Primary Care) Vital Signs: Last Vital Signs Pulse 100 12/01/23 08:42 BP 106/70 12/01/23 08:42 Pulse Ox 95 12/01/23 08:42 Oxygen Delivery Method Room Air 12/01/23 08:42 BMI result Body Mass Index 31.0 Tobacco/Smoking Status: Tobacco use Status Tobacco use date assessed 12/01/23 12/01/23 08:47 Patient Tobacco Use Status Never used Tobacco 12/01/23 08:34 e-Cigarette/Vaping Use Never Used 12/01/23 08:34 PHQ-9: PHQ-9 Score PHQ-9: Total score 0 12/01/23 08:58 Depression Screening Interpretation: Negative Thrive Assessment: Date of Thrive Assessment Date Thrive assessed 12/01/23 12/01/23 08:47 Currently or been in a relationship where the following occur: No concerns reported Const General: cooperative, healthy appearing, comfortable and no acute distress Nutritional Appearance: overweight Orientation/consciousness: patient oriented x3 Limitations: no limitations HENMT Mouth: Normal oral and palatal mucosa present and moist mucous membranes Eyes General: appearance normal, both eyes and all related structures Neck Neck: Yes full ROM, Yes no lymphadenopathy and Yes supple Thyroid: Thyroid normal Chest Chest palpation & inspection: normal inspection of the chest Breast/axilla palpation: normal palpation of the breasts Resp Effort & Inspection: normal respiratory effort and able to speak in complete sentences Auscultation: clear to auscultation bilaterally Cardio Rate: regular rate Rhythm: regular rhythm Heart sounds: S1 normal heart sound present and S2 normal heart sound present GI Palpation (GI): Soft to palpation, nontender and no guarding Auscultation: normal bowel sounds Other: Declined pelvic exam Neuro Other: no tremors General: patient oriented x3, gait normal, tone normal, moves all extremities, Normal light touch and pain sensation, no focal motor deficits and CN's II-XI intact bilaterally Cranial nerves: Yes Normal hearing present Cognition (Neuro): normal cognition Gait exam (Neuro): Normal gait present Sensory Exam: No Sensory deficit (Neuro) Extrem General: Yes full ROM, Yes no joint enlargement, Yes no pedal edema and Yes normal gait Psych Appearance: grossly normal and well kempt Mental Status: mental status grossly normal Speech and movement: Normal speech and movement present Affect: normal affect Attitude: cooperative Immunizations pneumoc 20-aislinn conj-dip cr(PF) 0.5 mL IM syringe Performing Provider: Aicha Fuentes MD Performing Location: [facility] Administered by: Lalitha Uribe CMA on 12/01/23 09:25 Dose Route Admin Location Dispensed Lot Number Expiration Date [facility] [employer] 0.5 mL IM Left Deltoid 0.5 mL [id number] 09/04/24 4523-5122-88 [employer] VIS Given Date VIS Provided VIS Publication Date 12/01/23 Single Vaccine 21 Eligibility Eligibility Date Funding Source Not [facility] Eligible 12/01/23 Private Assessment and Plan Assessment & Plan (1) Annual visit for general adult medical examination with abnormal findings: Code(s): Z00.01 - Encounter for general adult medical examination with abnormal findings Plan: Will check appropriate labs. Recommended dental visit every 6 months and continue with regular eye exams, sees Dr. Brunson. Take adequate calcium in diet and vitamin-D 3 at 2000 IU per cap once a day, in addition to weight-bearing exercises to help maintain good muscle tone and weight control. Instructed to do self-breast exam, and continue yearly mammogram, has appointment already scheduled for 10/28/2024, and ordered a bone density scan to be done together the same time. Up-to-date with her vaccinations, Prevnar 20 given today, patient will be scheduling her flu vaccine and COVID booster (2) Dyslipidemia: Code(s): E78.5 - Hyperlipidemia, unspecified Plan: Fasting lipid ordered today (3) Impaired fasting glucose: Code(s): R73.01 - Impaired fasting glucose Plan: Fasting basic metabolic panel (4) Essential tremor: Code(s): G25.0 - Essential tremor Plan: Continued on primidone, followed by a movement specialist in [place] (5) Keratoconus of both eyes: Code(s): H18.603 - Keratoconus, unspecified, bilateral Plan: Followed by Dr. Brunson (6) Osteoporosis: Code(s): M81.0 - Age-related osteoporosis without current pathological fracture Plan: Received IV Reclast in 2021 given at [facility], and recommended no further treatment at present, repeat another bone density scan in 2024 for follow-up continue with regular weight-bearing exercise patient enrolled in the exercise program given at the [facility] for osteoporosis prevention. Orders: Orders XR DEXA axial skeleton 10/18/24 M81.0 - Age-related osteoporosis without current pathological fracture Lipid Panel Today E78.5 - Hyperlipidemia, unspecified, G25.0 - Essential tremor, H18.603 - Keratoconus, unspecified, bilateral, R73.01 - Impaired fasting glucose, Z00.01 - Encounter for general adult medical examination with abnormal findings Aspartate Amino Transferase Today E78.5 - Hyperlipidemia, unspecified, G25.0 - Essential tremor, H18.603 - Keratoconus, unspecified, bilateral, R73.01 - Impaired fasting glucose, Z00.01 - Encounter for general adult medical examination with abnormal findings Pneumococcal 20 Immunization Today Z23 - Encounter for immunization Vitamin D 25-OH Total Today E78.5 - Hyperlipidemia, unspecified, G25.0 - Essential tremor, H18.603 - Keratoconus, unspecified, bilateral, R73.01 - Impaired fasting glucose, Z00.01 - Encounter for general adult medical examination with abnormal findings Basic Metabolic Panel Fasting Today E78.5 - Hyperlipidemia, unspecified, G25.0 - Essential tremor, H18.603 - Keratoconus, unspecified, bilateral, R73.01 - Impaired fasting glucose, Z00.01 - Encounter for general adult medical examination with abnormal findings Alanine Aminotransferase Today E78.5 - Hyperlipidemia, unspecified, G25.0 - Essential tremor, H18.603 - Keratoconus, unspecified, bilateral, R73.01 - Impaired fasting glucose, Z00.01 - Encounter for general adult medical examination with abnormal findings Medications: New pneumoc 20-aislinn conj-dip cr(PF) 0.5 mL IM ONCE 0.5 mL 0RF Z23 - Encounter for immunization Coding Level of Care Code Est Pt Prev Care >65y(45991) Diagnoses Annual visit for general adult medical examination with abnormal findings Z00.01 Dyslipidemia E78.5 Impaired fasting glucose R73.01 Essential tremor G25.0 Keratoconus of both eyes H18.603 Osteoporosis M81.0 Additional Codes JASE-7 Assessment Billing - JASE-7 Assessment Tool: JASE-7 Assessment [id number] ([id number])
[2023-12-01 08:42] VITALS: BP 106/70; PULSE 100; O2SAT 95; BMI 31.0
== END 2023-12-01 09:24 | disposition home or self-care (01) ==
PROVIDERS: PCP Internal Medicine; Visit Provider Internal Medicine
DX: Z00.01 Encounter for general adult medical examination with abnormal findings (principal); E78.5 Hyperlipidemia, unspecified; R73.01 Impaired fasting glucose; G25.0 Essential tremor; H18.603 Keratoconus, unspecified, bilateral; M81.0 Age-related osteoporosis without current pathological fracture; Z23 Encounter for immunization

== ENCOUNTER → 2023-12-01 08:18 | Outpatient (BNVA) | payer MEDICARE, SELFPAY | PROVIDERS: PCP Internal Medicine; Visit Provider Internal Medicine | DX: Z00.01 Encounter for general adult medical examination with abnormal findings (principal); Z23 Encounter for immunization; E78.5 Hyperlipidemia, unspecified; R73.01 Impaired fasting glucose; G25.0 Essential tremor; M81.0 Age-related osteoporosis without current pathological fracture; H18.603 Keratoconus, unspecified, bilateral | CPT/HCPCS: 90471; 90677; 96127 ==

== ENCOUNTER 2023-12-01 09:26 | Outpatient (REF) | payer MEDICARE, SELFPAY ==
[2023-12-01 14:29] LABS: Alanine Aminotransferase 12 U/L (0-31); Anion Gap 12 (12-20); Aspartate Amino Transferase 19 U/L (5-31); Blood Urea Nitrogen 19 mg/dL (9-16); Calcium 9.7 mg/dL (8.4-10.2); Carbon Dioxide 32 mmol/L (22-29); Chloride 101 mmol/L (96-108); Cholesterol 226 mg/dL (<200); Estimated Glomerular Filt Rate > 60; Glucose Fasting 97 mg/dL (60-99); HDL Cholesterol 47 mg/dL (>40); LDL Cholesterol Calculated 143 mg/dL (<100); Sodium 141 mmol/L (135-145); Triglycerides 182 mg/dL (<150); Vitamin D 25-OH Total 69.8 ng/mL (>30)
== END 2023-12-01 09:27 | disposition home or self-care (01) ==
LOC: HO.HMGCLDS 09:26
PROVIDERS: PCP Internal Medicine; Visit Provider Internal Medicine
DX: Z00.01 Encounter for general adult medical examination with abnormal findings (principal); H18.603 Keratoconus, unspecified, bilateral; G25.0 Essential tremor; R73.01 Impaired fasting glucose; E78.5 Hyperlipidemia, unspecified
CPT/HCPCS: 36415; 80048; 80061; 82306; 84450; 84460

== ENCOUNTER 2024-01-18 12:44 | Outpatient (AMB) | payer MEDICARE, SELFPAY ==
--- NOTE | 2024-01-18 12:57 | A.OFFPC_ITS ---
Vital Signs 01/18/24 12:58 Height 5 ft 3 in Weight 177 lb BMI 31.4 BP 110/60 Blood Pressure Location Rt brachial Position Sitting Pulse 91 Pulse Source Pulse Oximeter Pulse Oximetry (%) 98 Oxygen Delivery Method Room Air Intake Visit Reasons: Rt eye cataract 01/[address] Brunson Intake Note: Pt is here today for her pre-op Rt eye cataract 02/01/[address] Brunson Allergies No Known Allergies Allergy (Verified 01/18/24 13:20) Medication List - Last Reconciled 01/18/24 by Aicha Fuentes MD multivitamin with iron (Daily Vites/Iron tablet) 1 tab PO DAILY primidone 100 mg PO BEDTIME vit A,C,U-S0-frfa-wzm-vhy-sfch 1000 unit-300mg -100 unit-2 mg 1,000 unit-300mg - 100 unit-2 mg tabs PO Tobacco use date assessed: 01/18/24 Fall risk assessment: No Falls in past year Last assessed Fall Risk: 01/18/24 Dental Screening Dental Screen Date: 01/18/24 Did you have a dental visit in the last 12 months?: Yes Did you have a dental problem in the last 6 months where you did not have access to dental care?: No Was dental information given to patient?: Patient has dentist HPI Rt eye cataract 01/[address] Brunson HPI Details 73-year-old lady with history of osteopo rosis previously on Reclast, dyslipidemia, essential tremors, and impaired fasting glucose, here today for preoperative exam for right eye cataract surgery and corneal transplant, scheduled for 02/01/[address] Brunson. She has been feeling well, with no complaints at present time. [facility] Medical History Keratoconus of both eyes Essential tremor Impaired fasting glucose Osteoporosis Dyslipidemia Surgical History History of bilateral breast biopsy Family History Father CAD (coronary artery disease) Acute myocardial infarction Mother Breast cancer Uterine cancer Hypothyroidism Sister HTN (hypertension) Maternal Uncle Diabetes mellitus Paternal Uncle Diabetes mellitus Social History Housing: House Alcohol intake: never Patient Tobacco Use Status: Never used Tobacco e-Cigarette/Vaping Use: Never Used Second Hand Smoke Exposure: No service: No Current occupational status: retired Cognitive needs: No Hearing needs: No Vision needs: No Questionnaire Thrive Questionnaire Date Thrive assessed: 11/24/23 I am a: Patient What is your living situation today?: I have a steady place to live Within the past 12 months, did the food you bought not last and you didn't have the money to get more?: Never true Within the past 12 months, did you worry whether your food would run out before you got money to buy more?: Never true Do you have trouble paying for medicines?: No Do you have trouble getting transportation to medical appointments?: No Do you have trouble paying your heating and electricity bill?: No Do you have trouble taking care of your child, family member or friend?: No Do you have trouble with day-to-day activities such as bathing, preparing meals, shopping, managing finances, etc.?: No Are you currently unemployed and looking for a job?: No Are you interested in more education?: No Please select the resources that you would like help with: None Currently or been in a relationship where the following occur: No concerns reported THRIVE Score: 0 AUDIT C Alcohol Use Questionnaire (AUDIT-C) 2. How many drinks containing alcohol do you have on a typical day when you are drinking?: 1 or 2 3. How often do you have six or more drinks on one occasion?: Never Total Score: 0 JASE-7 AMB Questionnaire JASE-7 Date JASE - 7 assessed: 12/01/23 Source: Developed by Drs. Myke Kamara, Olga Narayanan, Haja Hugo and colleagues, with an educational alecia from [employer]. Review of Systems Const Denies body aches, Denies fatigue, Denies fever(s), Denies headache(s) and Denies weakness Eyes Details: Requires contact lenses ENT Reports Normal hearing present, Denies dizziness, Denies headache(s), Denies nasal congestion, Denies nasal discharge and Denies sore throat Card Denies chest pain, Denies lightheadedness, Denies palpitations and Denies dyspn ea Resp Denies chest congestion, Denies cough, Denies dyspnea and Denies wheezing GI Denies abdominal pain, Denies change in bowel habits and Denies heartburn Reports no additional complaints Musc Denies back pain, Denies arthralgias, Denies joint swelling and Reports stiffness Skin/Breast Denies pruritus, Denies lesions, Denies new lesions, Denies rash, Denies unusual bruising and Denies wounds Neuro Reports Normal hearing present, Denies dizziness, Denies headache(s), Denies Sensory deficit (Neuro), Reports tremor(s) (Controlled on primidone) and Denies weakness Psych Reports no additional complaints Endo Denies fatigue, Denies polydipsia, Denies polyuria and Denies palpitations Linden/Lymph Denies easy bruising Aller/Immun Denies seasonal rhinorrhea and Denies wheezing Physical exam (Primary Care) Vital Signs: Last Vital Signs Pulse 91 01/18/24 12:58 BP 110/60 01/18/24 12:58 Pulse Ox 98 01/18/24 12:58 Oxygen Delivery Method Room Air 01/18/24 12:58 BMI result Body Mass Index 31.4 Tobacco/Smoking Status: Tobacco use Status Tobacco use date assessed 01/18/24 01/18/24 13:07 Patient Tobacco Use Status Never used Tobacco 01/18/24 12:57 e-Cigarette/Vaping Use Never Used 01/18/24 12:57 Thrive Assessment: Date of Thrive Assessment Date Thrive assessed 11/24/23 01/18/24 12:57 Currently or been in a relationship where the following occur: No concerns reported Const General: healthy appearing, comfortable and no acute distress Nutritional Appearance: overweight Orientation/consciousness: patient oriented x3 HENMT Mouth: Normal oral and palatal mucosa present and moist mucous membranes Eyes General: appearance normal, both eyes and all related structures Neck Neck: Yes full ROM, Yes no lymphadenopathy and Yes supple Thyroid: Thyroid normal Chest Chest palpation & inspection: normal inspection of the chest Breast/axilla palpation: normal palpation of the breasts Resp Effort & Inspection: normal respiratory effort and able to speak in complete sentences Auscultation: clear to auscultation bilaterally Cardio Rate: regular rate Rhythm: regular rhythm Heart sounds: S1 normal heart sound present and S2 normal heart sound present GI Palpation (GI): Soft to palpation, nontender and no guarding Auscultation: normal bowel sounds Other: Declined pelvic exam General: Yes no CVA tenderness Back/Spine/Pelvis Back: no CVA tenderness, sacral edema and No back tenderness Skin General skin exam: no rashes or lesions noted Neuro Other: no tremors General: patient oriented x3, gait normal, tone normal, moves all extremities, Normal light touch and pain sensation, no focal motor deficits and CN's II-XI intact bilaterally Cranial nerves: Yes Normal hearing present Cognition (Neuro): normal cognition Gait exam (Neuro): Normal gait present Sensory Exam: No Sensory deficit (Neuro) Extrem General: Yes full ROM, Yes no joint enlargement, Yes no pedal edema and Yes normal gait Psych Appearance: grossly normal and well kempt Mental Status: mental status grossly normal Speech and movement: Normal speech and movement present Affect: normal affect Attitude: cooperative Coding Level of Care Code Est Pt Level 4 (03032) Diagnoses Keratoconus of both eyes H18.603 Essential tremor G25.0 Osteoporosis M81.0 Preoperative examination Z01.818 Assessment & Plan Assessment & Plan (1) Keratoconus of both eyes: Code(s): H18.603 - Keratoconus, unspecified, bilateral Category: Medical Plan: Scheduled for coronary transplant (2) Essential tremor: Code(s): G25.0 - Essential tremor Category: Medical Plan: Currently on primidone 100 mg at bedtime (3) Osteoporosis: Code(s): M81.0 - Age-related osteoporosis without current pathological fracture Category: Medical Plan: Has an order for a repeat bone density scan already scheduled next year.. Continue with regular weight-bearing exercise, adequate calcium from dietary sources and vitamin-D 3 at least 2000 units daily (4) Preoperative examination: Code(s): Z01.818 - Encounter for other preprocedural examination Plan: 73-year-old lady here today for preoperative exam for corneal transplant and cataract surgery on right eye, scheduled for 02 [address] Brunson. She has no history of any coronary or pulmonary disease. Preoperative exam was essentially unremarkable. She has a low cardiac risk index for proposed surgery
[2024-01-18 12:58] VITALS: BP 110/60; PULSE 91; O2SAT 98; BMI 31.4
== END 2024-01-18 14:15 | disposition home or self-care (01) ==
PROVIDERS: PCP Internal Medicine; Visit Provider Internal Medicine
DX: H18.603 Keratoconus, unspecified, bilateral (principal); G25.0 Essential tremor; M81.0 Age-related osteoporosis without current pathological fracture; Z01.818 Encounter for other preprocedural examination

== ENCOUNTER → 2024-01-18 12:44 | Outpatient (BNVA) | payer MEDICARE, SELFPAY | PROVIDERS: PCP Internal Medicine; Visit Provider Internal Medicine | DX: Z01.818 Encounter for other preprocedural examination (principal); H18.603 Keratoconus, unspecified, bilateral; G25.0 Essential tremor; M81.0 Age-related osteoporosis without current pathological fracture | CPT/HCPCS: 99212 ==

== ENCOUNTER 2024-02-29 12:54 | Outpatient (AMB) | payer MEDICARE, SELFPAY ==
--- NOTE | 2024-02-29 13:22 | MHC.OFFWIV ---
Intake Vital Signs 02/29/24 13:24 Weight 171 lb BP 120/80 Blood Pressure Location Rt brachial Position Sitting Pulse 85 Pulse Source Pulse Oximeter Pulse Oximetry (%) 98 Oxygen Delivery Method Room Air Intake Visit Reasons: EP Can't get contact out of LT eye Intake Note: Patient here for left eye contact that she cannot get out. Patient Tobacco Use Status: Never used Tobacco Allergies No Known Allergies Allergy (Verified 02/29/24 13:56) Medication List - Last Reconciled 02/29/24 by Luiz Childs MD multivitamin with iron (Daily Vites/Iron tablet) 1 tab PO DAILY primidone 100 mg PO BEDTIME vit A,C,T-[id number]-[id number]-frqd 1000 unit-300mg -100 unit-2 mg 1,000 unit-300mg -100 unit-2 mg tabs PO Do you need a note to return to daycare/school/sports/work: No HPI EP Can't get contact out of LT eye HPI Details 73 yr old female presents to the office for a sick visit. Pt recently had corneal surgery in the right eye for keratoconus. She was trying to place a contact lens in the left eye and believes its in the eye but in the wrong place. No tearing, she cannot feel the contact, no FB sensation. [facility] Medical History Keratoconus of both eyes Essential tremor Impaired fasting glucose Osteoporosis Dyslipidemia Surgical History History of bilateral breast biopsy Family History Father CAD (coronary artery disease) Acute myocardial infarction Mother Breast cancer Uterine cancer Hypothyroidism Sister HTN (hypertension) Maternal Uncle Diabetes mellitus Paternal Uncle Diabetes mellitus Social History Housing: House Alcohol intake: never Patient Tobacco Use Status: Never used Tobacco e-Cigarette/Vaping Use: Never Used Second Hand Smoke Exposure: No service: No Current occupational status: retired Cognitive needs: No Hearing needs: No Vision needs: No Physical Exam Vital Signs: Last Vital Signs Pulse 85 02/29/24 13:24 BP 120/80 02/29/24 13:24 Pulse Ox 98 02/29/24 13:24 Oxygen Delivery Method Room Air 02/29/24 13:24 Eyes Other: Left eye: Eye examined carefully. No Contact lense seen. Cornea appears clear. Assessment & Plan Assessment & Plan (1) Foreign body, eye: Code(s): T15.90XA - Foreign body on external eye, part unspecified, unspecified eye, initial encounter Plan: Patient reassured. No FB seen Coding Level of Care Code Est Pt Level 3 (95973) Diagnoses Foreign body, eye T15.90XA
[2024-02-29 13:24] VITALS: BP 120/80; PULSE 85; O2SAT 98
== END 2024-02-29 14:39 | disposition home or self-care (01) ==
PROVIDERS: PCP Internal Medicine; Visit Provider Internal Medicine
DX: T15.90XA Foreign body on external eye, part unspecified, unspecified eye, initial encounter (principal)

== ENCOUNTER → 2024-02-29 12:54 | Outpatient (BNVA) | payer MEDICARE, SELFPAY | PROVIDERS: PCP Internal Medicine; Visit Provider Internal Medicine | DX: T15.90XA Foreign body on external eye, part unspecified, unspecified eye, initial encounter (principal) | CPT/HCPCS: 99212 ==

== ENCOUNTER 2024-07-17 11:42 | Outpatient (AMB) | payer MEDICARE, SELFPAY ==
--- OUTSIDE RECORDS SUMMARY | 2024-07-17 12:28 | XMS_ITS | Clinical Summary ---
Author Organization [facility] Address [address] [place] [address] Care Team Providers Care Manager Flight Name Role Phone Aicha Fuentes MD Primary Care Provider Allergies No known active allergies Medications primidone (MYSOLINE) 50 MG tabletIndicatio ns:Essential tremor Take 2 tablets (100 mg total) by mouth nightly. 180 tablet 3 5 06/17/19 26 Active primidone (MYSOLINE) 50 MG tabletIndicatio ns:Essential tremor Take 2 tablets (100 mg total) by mouth nightly. 180 tablet 3 4 06/22/19 25 Discontinu ed(Reorder ) Active Problems No known active problems Encounters Date Type Department Care Team Description 06/21/2024 11:30 AM EDT Office Visit [facility] [place] [address] [place] [phone] James Sandoval MD Essential tremor (Primary Dx) 06/21/2024 Travel from Last 3 Months Family History Medical History Relation Name Comments Heart attack Father Ed Heart disease Father Ed Diabetes Maternal Uncle Breast cancer Mother Claudia Hypothyroidism Mother Claudia Uterine cancer Mother Claudia Diabetes Paternal Uncle Hypertension Sister Tremor Neg Hx Relation Name Status Comments Father Ed Maternal Uncle Mother Claudia Paternal Uncle Sister Social History Tobacco Use Types Packs/Day Years Used Date Smoking Tobacco: Never Smokeless Tobacco: Never Tobacco Cessation:Counseling Given: Not Answered Alcohol Use Standard Drinks/Week Comments Never 0 (1 standard drink = 0.6 oz pur e alcohol) Comments Unknown Sex and Gender Information Value Date Recorded Sex Assigned at Female 04/12/2023 6:35 PM EST Legal Sex Female 6:38 PM EST Gender Identity Female 04/12/2023 6:35 PM EST Sexual Orientation Not on file Last Filed Vital Signs Vital Sign Reading Time Taken Comments Blood Pressure - - Pulse - - Temperature - - Respiratory Rate - - Oxygen Saturation 98% 06/21/2024 10:51 AM EDT Inhaled Oxygen Concentration - - Weight 80.3 kg (177 lb) 06/21/2024 10:51 AM EDT Height 160.7 cm (5' 3.25 ) 06/21/2024 10:51 AM E DT Body Mass Index 31.11 06/21/2024 10:51 AM EDT Plan of Treatment Upcoming Encounters Date Type Department Care Team (Late st Contact Info) Description 06/25/2025 11:30 AM EDT Office Visit [facility] [place] [address] [place] [phone] James Sandoval MD [address] [address] Health Maintenance Due Date Last Done Comments Hepatitis C Virus Screening 1952 DTaP/Tdap/Td Vaccines (1 - Tdap) 12/14/1971 Mammogram 1992 Colonoscopy 1997 Pneumococcal Vaccines 50+ (1 of 1 - PCV) 2002 Zoster (Shingles) Vaccine (1 of 2) 2002 DXA Bone Density (Females,Ages 65 and older) 2017 COVID-19 Vaccine (3 - 2023-2 5 season) 2023 06/11/2020, 05/21/2020 Influenza Vaccine 10/06/2024 12/14/2022 RSV Vaccine 60 years and older and Patients (1 - 1-dose 75+ series) 12/14/2027 Hepatitis B Vaccines Aged Out No long er eligible based on patient's age to complete this topic Insurance BLUE CROSS [employer] MEDICARE OUT OF NETWORK Care Teams Manager Flight Relationship Specialty Start Date End Date Aicha Fuentes MD [address] [place] [address] PCP - General Internal Medicine 04/09/23
--- OUTSIDE RECORDS SUMMARY | 2024-07-17 12:28 | XMS_ITS | Encounter Summary ---
Author Organization [facility] Address [address] [place] [address] Care Team Providers Care Coil Placer Name Role Phone Aicha Fuentes MD Primary Care Provider Encounter Details Date Type Department Care Team (Late st Contact Info) Description 04/13/2023 Scanned Document [facility] MED RECORDS SCAN James Sandoval MD [address] [address] Social History Tobacco Use Types Packs/Day Years Used Date Smoking Tobacco: Never Assessed Comments Unknown Sex and Gender Information Value Date Recorded Sex Assigned at Female 04/12/2023 6:35 PM EST Legal Sex Female 6:38 PM EST Gender Identity Female 04/12/2023 6:35 PM EST Sexual Orientation Not on file documented as of this encounter Plan of Treatment Upcoming Encounters Date Type Department Care Team (Late st Contact Info) Description 06/25/2025 11:30 AM EDT Office Visit [facility] Neurology [place] [address] [place] [address] James Sandoval MD [address] [address] documented as of this encounter Visit Diagnoses Not on filedocumented in this encounter Care Teams Coil Placer Relationship Specialty Start Date End Date Aicha Fuentes MD [address] [place] [phone] PCP - General Internal Medicine 04/09/23 documented as of this encounter
--- OUTSIDE RECORDS SUMMARY | 2024-07-17 12:28 | XMS_ITS | Encounter Summary ---
Author Organization [facility] Address [address] [place] [address] Care Team Providers Care Kinesiotherapist Name Role Phone Aicha Fuentes MD Primary Care Provider [phone] Encounter Details Date Type Department Care Team (Late st Contact Info) Description 04/14/2023 Scanned Document [facility] NEUROLOGY SCAN Neurology, Scan Social History Tobacco Use Types Packs/Day Years [...] Description 06/25/2025 11:30 AM EDT Office Visit [facility] Neurology [place] [address] [place] [phone] James Sandoval MD [address] [phone] documented as of this encounter Visit Diagnoses Not on filedocumented in this encounter Care Teams Kinesiotherapist Relationship Specialty Start Date End Date Aicha Fuentes MD [address] [place] [address] PCP - General Internal Medicine 04/09/23 documented as of this encounter
--- OUTSIDE RECORDS SUMMARY | 2024-07-17 12:28 | XMS_ITS | Encounter Summary ---
Author Organization [facility] Address [address] [place] [address] Care Team Providers Care Autism Tutor Name Role Phone Aicha Fuentes MD Primary Care Provider [phone] Encounter Details Date Type Department Care Team (Late st Contact Info) Description 04/13/2023 Scanned Document [facility] MED RECORDS SCAN Medical Records, Scan Social History Tobacco Use Types Packs/Day [...] Description 06/25/2025 11:30 AM EDT Office Visit [facility] Neurology [place] [address] [place] [phone] James Sandoval MD [address] [id number] documented as of this encounter Visit Diagnoses Not on filedocumented in this encounter Care Teams Autism Tutor Relationship Specialty Start Date End Date Aicha Fuentes MD [address] [place] [address] PCP - General Internal Medicine 04/09/23 documented as of this encounter
--- OUTSIDE RECORDS SUMMARY | 2024-07-17 12:28 | XMS_ITS ---
Author Name [facility] Organization Unknown Problems Problem Status Onset Date Problem Type Date of Resoluti on Source Essential tremor active EncounterDiagnosisAct CCT Encounters Encounter Type Encounter Reason Primary Diagnosis Location Date Ambulatory Neurologic Problem Neurologic Problem [facility] 06/21/2024 Ambulatory [place] [email or web address] 05/14/2023 Ambulatory [place] [email or web address] 05/14/2023 Ambulatory Essential tremor Essential tremor [facility] Antibodies 05/05/2023 Care Team Organization Name Specialty Phone Email Start Date End [facility] 05/05/2023 [place] [facility] Antib[facility] 04/09/2023 [facility] 04/09/2023
--- NOTE | 2024-07-17 12:37 | A.OFFPC_ITS ---
Vital Signs 07/17/24 12:38 Height 5 ft 3 in Weight 176 lb BMI 31.2 BP 110/70 Blood Pressure Location Lt brachial Position Sitting Respiration 18 Pulse 70 Pulse Source Pulse Oximeter Temp 98.2 F Temp Source Oral Pulse Oximetry (%) 96 Oxygen Delivery Method Room Air Intake Visit Reasons: cornea/cataract Lt eye transplant Dr. Brunson 08/01 Intake Note: Pt is here today for a pre op visit. Pt is having cataract surgery and L eye cornea transplant with Dr. Brunson on 08/01/24. Allergies No Known Allergies Allergy (Verified 07/17/24 13:03) Medication List - Last Reconciled 07/17/24 by Aicha Fuentes MD multivitamin with iron (Daily Vites/Iron tablet) 1 tab PO DAILY primidone 100 mg PO BEDTIME vit A,C,J-P0-[id number]-ptd-fbk-rtry 1000 unit-300mg -100 unit-2 mg 1,000 unit-300mg - 100 unit-2 mg tabs PO Tobacco use date assessed: 07/17/24 Fall risk assessment: No Falls in past year Last assessed Fall Risk: 07/17/24 Dental Screening Dental Screen Date: 07/17/24 Did you have a dental visit in the last 12 months?: Yes Did you have a dental problem in the last 6 months where you did not have access to dental care?: No Was dental information given to patient?: Patient has dentist HPI cornea/cataract Lt eye transplant Dr. Brunson 08/01 HPI Details 73-year-old lady with history of osteopo rosis, dyslipidemia, essential tremors and impaired fasting glucose , and keratoconus, here today for preoperative exam for left eye cataract surgery and corneal transplant on left eye. to be done by Dr. Brunson on 08/01/2024. She has been feeling well, no complaints at present time. Not on any anticoagulants. [facility] Medical History Keratoconus of both eyes Essential tremor Impaired fasting glucose Osteoporosis Dyslipidemia Surgical History History of bilateral breast biopsy Family History Father CAD (coronary artery disease) Acute myocardial infarction Mother Breast cancer Uterine cancer Hypothyroidism Sister HTN (hypertension) Maternal Uncle Diabetes mellitus Paternal Uncle Diabetes mellitus Social History Housing: House Alcohol intake: never Patient Tobacco Use Status: Never used Tobacco e-Cigarette/Vaping Use: Never Used Second Hand Smoke Exposure: No service: No Current occupational status: retired Cognitive needs: No Hearing needs: No Vision needs: No Questionnaire PHQ-9 Over the last 2 weeks, how often have you been bothered by any of the following problems? 1. Little interest or pleasure in doing things: not at all 2. Feeling down, depressed, or hopeless: not at all 3. Trouble falling or staying asleep, or sleeping too much: not at all 4. Feeling tired or having little energy: not at all 5. Poor appetite or overeating: not at all 6. Feeling bad about yourself - or that you are a failure or have let yourself or your family down: not at all 7. Trouble concentrating on things, such as reading the newspaper or watching television: not at all 8. Moving or speaking so slowly that other people could have noticed. Or the opposite - being so fidgety or restless that you have been moving around a lot more than usual: not at all 9. Thoughts that you would be better off or of hurting yourself in some way: not at all Total score: 0 Depression Screening Interpretation: Negative Depression Screening Done: Yes 75641 - PHQ-9 Billing: Yes Source: Developed by Drs. Myke Kamara, Olga Narayanan, Haja Hugo and colleagues, with an educational alecia from [employer]. Thrive Questionnaire Date Thrive assessed: 07/17/24 I am a: Patient What is your living situation today?: I have a steady place to live Within the past 12 months, did the food you bought not last and you didn't have the money to get more?: Never true Within the past 12 months, did you worry whether your food would run out before you got money to buy more?: Never true Do you have trouble paying for medicines?: No Do you have trouble getting transportation to medical appointments?: No Do you have trouble paying your heating and electricity bill?: No Do you have trouble taking care of your child, family member or friend?: No Do you have trouble with day-to-day activities such as bathing, preparing meals, shopping, managing finances, etc.?: No Are you currently unemployed and looking for a job?: No Are you interested in more education?: No Please select the resources that you would like help with: None Currently or been in a relationship where the following occur: No concerns reported THRIVE Score: 0 AUDIT C Alcohol Use Questionnaire (AUDIT-C) 1. How often do you have a drink containing alcohol?: Never 3. How often do you have six or more drinks on one occasion?: Never Total Score: 0 JASE-7 AMB Questionnaire JASE-7 Date JASE - 7 assessed: 07/17/24 Feeling nervous, anxious, or on edge: 0 = Not at all Not being able to stop or control worryin = Not at all Worrying too much about different things: 0 = Not at all Trouble relaxin = Not at all Being so restless that it is hard to sit still: 0 = Not at all Becoming easily annoyed or irritable: 0 = Not at all Feeling afraid as if something awful might happen: 0 = Not at all Total JASE-7 score (0-4 normal; 5-9 mild; 10-14 moderate; 15-21 severe): 0 Source: Developed by Drs. Myke Kamara, Olga Narayanan, Haja Hugo and colleagues, with an educational alecia from [employer]. JASE-7 Assessment Billing JASE-7 Assessment Tool: JASE-7 Assessment 91483 Review of Systems Const Denies body aches, Denies fatigue, Denies fever(s), Denies headache(s) and Denies weakness Eyes Reports blurry vision and Reports requires corrective lenses ENT Reports Normal hearing present, Denies dizziness, Denies headache(s) and Denies nasal congestion Card Denies chest pain, Denies lightheadedness, Denies palpitations and Denies dyspnea Resp Denies chest congestion, Denies cough, Denies dyspnea and Denies wheezing GI Denies abdominal pain, Denies change in bowel habits and Denies heartburn Reports no additional complaints Musc Denies back pain, Denies arthralgias, Denies joint swelling and Reports stiffness Skin/Breast Denies pruritus, Denies lesions, Denies new lesions, Denies rash, Denies unusual bruising and Denies wounds Neuro Reports Normal hearing present, Denies dizziness, Denies headache(s), Denies Sensory deficit (Neuro), Reports tremor(s) (Controlled on primidone) and Denies weakness Psych Reports no additional complaints Endo Denies fatigue, Denies polydipsia, Denies polyuria and Denies palpitations [place]/Lymph Denies easy bruising Aller/Immun Denies seasonal rhinorrhea and Denies wheezing Physical exam (Primary Care) Vital Signs: Last Vital Signs Temp 98.2 F 07/17/24 12:38 Pulse 70 07/17/24 12:38 Resp 18 07/17/24 12:38 BP 110/70 07/17/24 12:38 Pulse Ox 96 07/17/24 12:38 Oxygen Delivery Method Room Air 07/17/24 12:38 BMI result Body Mass Index 31.2 Tobacco/Smoking Status: Tobacco use Status Tobacco use date assessed 07/17/24 07/17/24 12:44 Patient Tobacco Use Status Never used Tobacco 07/17/24 12:44 e-Cigarette/Vaping Use Never Used 07/17/24 12:38 PHQ-9: PHQ-9 Score PHQ-9: Total score 0 07/17/24 13:08 Depression Screening Interpretation: Negative Thrive Assessment: Date of Thrive Assessment Date Thrive assessed 07/17/24 07/17/24 12:44 Currently or been in a relationship where the following occur: No concerns reported Const General: comfortable and no acute distress Nutritional Appearance: overweight Orientation/consciousness: patient oriented x3 HENMT Mouth: Normal oral and palatal mucosa present and moist mucous membranes Eyes General: appearance normal, both eyes and all related structures Neck Neck: Yes full ROM, Yes no lymphadenopathy and Yes supple Thyroid: Thyroid normal Resp Effort & Inspection: normal respiratory effort and able to speak in complete sentences Auscultation: clear to auscultation bilaterally Cardio Rate: regular rate Rhythm: regular rhythm Heart sounds: S1 normal heart sound present and S2 normal heart sound present GI Palpation (GI): Soft to palpation, nontender and no guarding Auscultation: normal bowel sounds General: Yes no CVA tenderness Back/Spine/Pelvis Back: no CVA tenderness, sacral edema and No back tenderness Skin General skin exam: no rashes or lesions noted Neuro General: patient oriented x3, gait normal, tone normal, moves all extremities, Normal light touch and pain sensation, no focal motor deficits and CN's II-XI intact bilaterally Cranial nerves: Yes Normal hearing present Cognition (Neuro): normal cognition Gait exam (Neuro): Normal gait present Sensory Exam: No Sensory deficit (Neuro) Extrem General: Yes full ROM, Yes no joint enlargement, Yes no pedal edema and Yes normal gait Psych Appearance: grossly normal and well kempt Mental Status: mental status grossly normal Speech and movement: Normal speech and movement present Affect: normal affect Attitude: cooperative Coding Level of Care Code Est Pt Level 4 (71473) Diagnoses Preoperative examination Z01.818 Keratoconus of both eyes H18.603 Essential tremor G25.0 Age-related osteoporosis without current pathological fracture M81.0 Osteoporosis type: age-related Presence of current pathological fracture: without current pathological fracture Dyslipidemia E78.5 Additional Codes JASE-7 Assessment Billing - JASE-7 Assessment Tool: JASE-7 Assessment 51287 ([id number]) PHQ-9 - 22111 - PHQ-9 Billing: Yes ([id number]) Assessment & Plan Assessment & Plan (1) Preoperative examination: Code(s): Z01.818 - Encounter for other preprocedural examination Plan: 73-year-old lady here today for preoperative exam for cataract surgery left eye and corneal transplant on left eye as well for treatment of keratoconus , requested by Dr. Brunson, scheduled for 08/01/2024. Patient without any new complaints, physical exam unremarkable, patient with a low cardiac risk factor for proposed surgery (2) Keratoconus of both eyes: Code(s): H18.603 - Keratoconus, unspecified, bilateral Category: Medical Plan: Scheduled for corneal transplant left eye and cataract surgery, to be done by Dr. Brunson (3) Essential tremor: Code(s): G25.0 - Essential tremor Category: Medical Plan: Currently taking primidone 100 mg at bedtime (4) Osteoporosis: Code(s): M81.0 - Age-related osteoporosis without current pathological fracture Category: Medical Qualifiers: Osteoporosis type: age-related Presence of current pathological fracture: without current pathological fracture Qualified Code(s): M81.0 - Age- related osteoporosis without current pathological fracture Plan: Followed at [facility] endocrine clinic, previously was on alendronate for more than 10 years and then later switched to IV Reclast in 2022 with improvement in her bone density on lumbar spine, due for repeat bone density scan this year (5) Dyslipidemia: Code(s): E78.5 - Hyperlipidemia, unspecified Category: Medical Plan: Reinforced importance of following a low-cholesterol diet, and getting regular exercise.
[2024-07-17 12:38] VITALS: BP 110/70; PULSE 70; RESP 18; TEMP 36.8; O2SAT 96; BMI 31.2
== END 2024-07-17 15:28 | disposition home or self-care (01) ==
LOC: HO.HMCC 11:43
PROVIDERS: PCP Internal Medicine; Visit Provider Internal Medicine
DX: Z01.818 Encounter for other preprocedural examination (principal); H18.603 Keratoconus, unspecified, bilateral; G25.0 Essential tremor; M81.0 Age-related osteoporosis without current pathological fracture; E78.5 Hyperlipidemia, unspecified

== ENCOUNTER → 2024-07-17 11:42 | Outpatient (BNVA) | payer MEDICARE, SELFPAY | PROVIDERS: PCP Internal Medicine; Visit Provider Internal Medicine | DX: Z01.818 Encounter for other preprocedural examination (principal); E78.5 Hyperlipidemia, unspecified; M81.0 Age-related osteoporosis without current pathological fracture; G25.0 Essential tremor; H18.603 Keratoconus, unspecified, bilateral | CPT/HCPCS: 96127; 99212 ==

== ENCOUNTER 2024-10-18 09:41 | Outpatient (REF) | payer MEDICARE, SELFPAY ==
--- NOTE | ~2024-10-18 | MM_ITS ---
EXAMINATION: MM SCREENING DIGITAL BREAST TOMOSYNTHESIS, BILATERAL CLINICAL INFORMATION: Screening. Asymptomatic. COMPARISON: Comparison made to multiple prior, most recent October 13, 2023, and most remote September 27, 2019. TECHNIQUE: Digital breast tomosynthesis is performed in both the craniocaudal and mediolateral oblique views along with computer-aided detection (CAD). FINDINGS: BREAST COMPOSITION: The breasts are heterogeneously dense, which may obscure small masses (ACR BI-RADS breast composition Category c). RIGHT BREAST: No significant masses, suspicious calcifications or other abnormalities are seen. LEFT BREAST: Tissue marker from previous needle core biopsy. No significant masses, suspicious calcifications or other abnormalities are seen. MM/MM tomosynthesis screening BI IMPRESSION: BILATERAL BREASTS: Benign, no mammographic evidence of malignancy. Normal interval follow-up is recommended in 12 months. ASSESSMENT: BI-RADS 2 - Benign Findings RECOMMENDATION: Routine annual mammography screening. FOLLOW-UP: 1 year F/U This examination should not preclude the clinical evaluation of a suspicious palpable abnormality. This patient's information was entered into a reminder system with a target due date for their next mammogram. Electronically signed by: Tracy Grimm MD 10/23/2024 03:58 PM EDT
--- NOTE | ~2024-10-18 | MM_ITS ---
EXAMINATION: DXA BONE DENSITY AXIAL HISTORY: M81.0 - Age-related osteoporosis without current pathological fracture TECHNIQUE: [employer] Dual energy absorptiometry (DEXA) of the lumbar spine, total left hip, and femoral neck was performed. COMPARISON: Comparison is made with the prior examination dated 10/08/2022. FINDINGS: The bone mineral density of the lumbar spine is 1.018 g/cm2, corresponding to a T-score of -1.3, and a Z-score of -0.1. This is indicative of osteopenia. This represents a BMD change of 0.3% compared to the prior exam. This is not statistically significant. The bone mineral density of the left total hip is 0.752 g/cm2, corresponding to a T-score of -2.0, and a Z-score of -0.8. This is indicative of osteopenia. This represents a BMD change of 6.1% compared to the prior exam. This is statistically significant. The bone mineral density of the left femoral neck is 0.746 g/cm2, corresponding to a T-score of -2.1, and a Z-score of -0.6. This is indicative of osteopenia. This represents a BMD change of 8.3% compared to the prior exam. FRACTURE RISK: The FRAX index suggests a ten year probability of major osteoporotic fracture of 12.7%, and of hip fracture 2.8%. MM/XR DEXA axial skeleton IMPRESSION: Based on bone mineral density, and according to World Health Organization (WHO) criteria, the diagnosis is consistent with osteopenia. Statistically, 68% of repeat scans fall within 1 SD (+/- 0.010 g/cm2 for AP spine L1-L4) and 1 SD (+/- 0.012 g/cm2 for femur total) FRAX is a trademark of the [employer]'s [place] for Metabolic Bone Disease, a World Health Organization (WHO) Collaborating Center. Electronically signed by: Myke Christie MD 10/18/2024 11:03 AM EDT
--- OUTSIDE RECORDS SUMMARY | 2024-10-18 10:10 | XMS_ITS ---
Author Name [facility] Organization Unknown Problems Problem Status Onset Date Problem Type Date of Resoluti on Source Essential tremor active EncounterDiagnosisAct CCT Encounters Encounter Type Encounter Reason Primary Diagnosis Location Date Ambulatory Neurologic Problem Neurologic Problem [facility] 06/21/2024 Ambulatory [facility] 05/14/2023 Ambulatory [facility] 05/14/2023 Ambulatory Essential tremor Essential tremor [facility] 05/05/2023 Care Team Organization Name Specialty Phone Email Start Date End Da te [place] [facility] 05/05/2023 07/23/2024 [place] [facility] Primary Care 04/09/2023 [facility] 04/09/2023
--- OUTSIDE RECORDS SUMMARY | 2024-10-18 10:10 | XMS_ITS | Clinical Summary ---
Author Organization Located Within [facility] Address [address] [facility] [address] [place] [phone] Phone Care Team Providers Care Engineer Internship Name Role Phone Aicha Fuentes MD Primary Care Provider Social History Tobacco Use Types Packs/Day Years Used Date Smoking Tobacco: Never Assessed Education Answer Date Recorded Are you interested in more education? Not on quan e 12/01/2023 Are you concerned about learning? Not on file 12/01/2023 No 12/01/2023 No 12/01/2023 Digital Access Answer Date Recorded No 12/01/2023 No 12/01/2023 Reliable internet access at home? Not on file 12/01/2023 Device with a working camera? Not on file Comments Unknown Sex and Gender Information Value Date Recorded Sex Assigned at Not on file Legal Sex Female 9:58 PM EDT Gender Identity Not on file Sexual Orientation Not on file Plan of Treatment Upcoming Encounters Date Type Department Care Team (Late st Contact Info) Description 11/24/2024 8:30 AM EDT Office Visit [facility] Neurology [address] [place] [address] Adolph Fernández MD [address] [facility], 2nd [place] [address] [email or web address] Health Maintenance Due Date Last Done Comments Adult Td,Tdap Booster 1950 LIPID PANEL 1952 DEPRESSION SCREENING 1964 SMOKING Hx and SMOKELESS TOB ACCO SCREENING 1965 HEPATITIS C SCREENING 1970 MAMMOGRAM 1992 COLOGUARD 1997 COLONOSCOPY 1997 COLORECTAL CANCER SCREENING 1997 FIT TEST 1997 FOBT 1997 SIGMOIDOSCOPY 1997 VIRTUAL COLONOSCOPY 1997 PNEUMOCOCCAL VACCINES (50+ y ears) (1 of 1 - PCV) 2002 ZOSTER VACCINES (1 of 2) 2002 OSTEOPOROSIS SCREENING INITI AL (ONE-TIME) 2017 COVID-19 VACCINE (2023-2 5 season) 2023 RSV VACCINE (1 - 1-dose 75+ series) 12/14/2027 HEPATITIS A VACCINES Aged Out No long er eligible based on patient's age to complete this topic HIB VACCINES Aged Out No longer eligi ble based on patient's age to complete this topic MENINGOCOCCAL VACCINES (ACWY) Aged Out No longer eligible based on patient's age to complete this topic MENINGOCOCCAL VACCINES (B) Aged Out N o longer eligible based on patient's age to complete this topic Medical Devices Not on file Insurance [facility] MEDICARE PPO BLUE REPLACEMENT [facility] MEDICARE PPO BLUE [place] [place] [address] MEDICARE PPO BLUE REPLACEMENT [facility] MEDICARE PPO BLUE REPLACEMENT [place] MED[place] P[place] BLUE REPLACEMENT [id number] Care Teams Engineer Internship Relationship Specialty Start Date End Date Aicha Fuentes MD [address] [facility] [place] [address] PCP - General Internal Medicine 12/01/23 Additional Source Comments The information contained in this document represents components of the legal health record. It is not the complete legal health record.[facility]
--- OUTSIDE RECORDS SUMMARY | 2024-10-18 10:10 | XMS_ITS | Clinical Summary ---
Author Organization [facility] Address [address] [place] [address] Care Team Providers Care Pony Ride Operator Name Role Phone Aicha Fuentes MD Primary Care Provider [phone] Allergies No known active allergies Medications primidone (MYSOLINE) 50 MG tabletIndicatio ns:Essential tremor Take 2 tablets (100 mg total) by mouth nightly. 180 tablet 3 06/21/2024 Active Active Problems No known active problems Family History Medical History Relation Name Comments [...] Description 06/25/2025 11:30 AM EDT Office Visit [facility] Neurology [place] [address] [facility] [place] [id number] James Sandoval MD [address] [facility] [address] [place], [place] [address] Health Maintenance Due Date Last Done Comments [...] MGD MEDICARE OUT OF NETWORK Care Teams Pony Ride Operator Relationship Specialty Start Date End Date Aicha Fuentes MD [address] [place] [address] PCP - General Internal Medicine 04/09/23
--- OUTSIDE RECORDS SUMMARY | 2024-10-18 10:10 | XMS_ITS | Patient Health Record ---
Author Organization [facility] Address [address] [place] [address] Care Team Providers Care Certified Registered Locksmith Name Role Phone Gina CULELO, Aicha Moore Primary Care Provider Un available Chloe, Pete Unavailable [phone] Reason For Referral No Information Medications Medication SIG (Take, Route, Fr equency, Duration) Notes Start Date End Date Status Nightsplint . . . AFO - L1930; Duration: . Active Aspirin 81 MG Orally Active Vitamin D3 1000 UNIT Orally Active Multivitamin Active Evista 60 MG Orally Active Social History Tobacco Use: Social History Observation Description Date Details (start date - stop date) Never Smoker NA - NA Tobacco Use/Smoking Question Answer Notes Are you a: nonsmoker Additional Findings: Tobacco Non-User Current no n-smoker Alcohol Screen Question Answer Notes Did you have a drink containing alcohol in the p ast year? Yes Points 0 Interpretation Negative Tobacco use other than smoking: Question Answer Notes Are you an other tobacco user? No Problems Problem Type SNOMED Code ICD Code Onset Dates Problem Status W/U Status Risk Notes Problem Plantar fascial fibromatosis (21317324) Plantar fascial fibromatosis (M72.2) Active confirmed Plan Of Treatment Pending Test Test Name Order Date [id number] TENDON SHEATH/LIGAMENT 0 04/12/2018 Insurance Providers Payer Name Payer Address Payer Phone Subscriber Number Group Number Insured Name Patient Relationship to Insured Coverage Start Date Coverage End Date BlueCare 65 Medicare Preferred [address] [place] [address] [id number] Laura Jefferson Self - patient is the insured Medical (General) History Medical History History ICD Code Osteoporosis Measles Mumps Chicken pox Surgical History Surgery Date(Month/Year)
== END 2024-10-18 09:42 | disposition home or self-care (01) ==
LOC: HO.MAMMO 09:41
PROVIDERS: PCP Internal Medicine; Visit Provider Internal Medicine
DX: Z12.31 Encounter for screening mammogram for malignant neoplasm of breast (principal); M81.0 Age-related osteoporosis without current pathological fracture
CPT/HCPCS: 77063; 77067; 77080

== ENCOUNTER → 2024-10-18 10:30 | Outpatient (BNV) | payer MEDICARE, SELFPAY | PROVIDERS: PCP Internal Medicine; Visit Provider Radiology Diagnostic Radiology | DX: E28.39 Other primary ovarian failure (principal) | CPT/HCPCS: 77080 ==

== ENCOUNTER 2024-12-18 08:51 | Outpatient (REF) | payer MEDICARE, SELFPAY ==
--- OUTSIDE RECORDS SUMMARY | 2024-12-18 08:54 | XMS_ITS | Clinical Summary ---
Author Organization [facility] Address [address] [place] [address] Care Team Providers Care Court Interpreter Name Role Phone Aicha Fuentes MD Primary [...] Description 06/25/2025 11:30 AM EDT Office Visit [facility] Neurology [place] [address] [place] [facility] [place] [address] James Sandoval MD [address] [facility] [address] [place], [place] [address] Health Maintenance Due Date Last Done Comments Advance Care Planning 1950 Hepatitis C Virus Screening 1950 DTaP/Tdap/Td Vaccines (1 - Tdap) 12/14/1971 Mammogram 1992 Colonoscopy 1997 Pneumococcal Vaccines 50+ (1 of 1 - PCV) 2002 Zoster (Shingles) Vaccine (1 of 2) 2002 DXA Bone Density (Females,Ages 65 and older) 2017 Influenza Vaccine 10/06/2024 12/14/2022 COVID-19 Vaccine (3 - 2024-2 6 season) 2024 06/11/2020, 05/21/2020 RSV Vaccine 60 years and older and Patients (1 - 1-dose 75+ series) 12/14/2027 Hepatitis B Vaccines Aged Out No long er eligible based on patient's age to complete this topic Insurance BLUE CROSS MGD MEDICARE OUT OF NETWORK Care Teams Court Interpreter Relationship Specialty Start Date End Date Aicha Fuentes MD [address] [place] [id number] PCP - General Internal Medicine 04/09/23
--- OUTSIDE RECORDS SUMMARY | 2024-12-18 08:54 | XMS_ITS | Encounter Summary ---
Author Organization [facility] Address [address] [place] [address] Care Team Providers Care Rheumatologist Name Role Phone Aicha Fuentes MD Primary Care Provider Encounter Details Date Type Department Care Team (Late st Contact Info) Description 04/13/2023 Scanned Document [facility] MED RECORDS SCAN Medical Records, Scan [...] Description 06/25/2025 11:30 AM EDT Office Visit [facility] Neurology [place] [address] [place] [phone] James Sandoval MD [address] [address] documented as of this encounter Visit Diagnoses Not on filedocumented in this encounter Care Teams Rheumatologist Relationship Specialty Start Date End Date Aicha Fuentes MD [address] [place] [address] PCP - General Internal Medicine 04/09/23 documented as of this encounter
--- OUTSIDE RECORDS SUMMARY | 2024-12-18 08:54 | XMS_ITS | Clinical Summary ---
Author Organization [facility] Address [address] [place] [address] [place] [address] Phone Care Team Providers Care Mounter Hand Name Role Phone Aicha Fuentes MD Primary Care Provider Allergies No known active allergies Medications primidone (MYSOLINE) 50 MG tabletIndicatio ns:Essential tremor Take 3 tablets (150 mg total) by mouth nightly at bedtime. 90 tablet 5 Active primidone (MYSOLINE) 50 MG tablet Take 100 mg by mouth nightly at bedtime. 11/25/19 25 Discontinu ed(Reorder ) Encounters Date Type Department Care Team Description 11/24/2024 8:30 AM EDT Office Visit [facility] Neurology [address] [place] [address] Adolph Fernández MD Essential tremor (Primary Dx) from Last 3 Months Social History Tobacco Use Types Packs/Day Years [...] on file Sexual Orientation Not on file Last Filed Vital Signs Vital Sign [place] Time Taken Comments Blood Pressure 100/70 11/24/2024 8:27 AM EDT Pulse 79 11/24/2024 8:27 AM EDT Temperature - - Respiratory Rate - - Oxygen Saturation 95% 11/24/2024 8:27 AM EDT Inhaled Oxygen Concentration - - Weight - - Height - - Body Mass Index - - Plan of Treatment Upcoming Encounters Date Type Department Care Team (Late st Contact Info) Description 06/04/2025 9:00 AM EDT Office Visit [facility] Neurology [address] [place] [address] Adolph Fernández MD [address] [facility]nd [place] [address] [email or web address] Maintenance Due Date Last Done Comments Adult Td,Tdap Booster 1952 LIPID PANEL 1952 DEPRESSION SCREENING 1964 SMOKING Hx and SMOKELESS TOB ACCO SCREENING 1965 HEPATITIS C SCREENING 1970 MAMMOGRAM 1992 COLONOSCOPY 1997 FIT TEST 1997 FOBT 1997 SIGMOIDOSCOPY 1997 VIRTUAL COLONOSCOPY 1997 PNEUMOCOCCAL VACCINES (50+ y ears) (1 of 1 - PCV) 2002 ZOSTER VACCINES (1 of 2) 2002 OSTEOPOROSIS SCREENING INITI AL (ONE-TIME) 2017 INFLUENZA VACCINE (#1) 2024 COVID-19 VACCINE (1 - 2024-2 6 season) 2024 COLOGUARD 09/26/2027 09/25/2024 COLORECTAL CANCER SCREENING 09/26/2027 RSV VACCINE (1 - 1-dose 75+ series) [...] topic Medical Devices Not on file Insurance Care Teams Mounter Hand Relationship Specialty Start Date End Date Aicha Fuentes MD [address] [place] [address] PCP - General Internal Medicine 12/01/23 Additional Source Comments The information contained in this document represents components of the legal health record. It is not the complete legal health record.[facility]
--- OUTSIDE RECORDS SUMMARY | 2024-12-18 08:55 | XMS_ITS | Encounter Summary ---
Author Organization [facility] Address [address] [place] [address] Care Team Providers Care Senior Packaging Engineer Name Role Phone Aicha Fuentes MD Primary Care Provider Encounter Details Date Type Department Care Team (Late st Contact Info) Description 04/14/2023 Scanned Document [facility] NEUROLOGY SCAN Neurology, Scan Social History Tobacco [...] Description 06/25/2025 11:30 AM EDT Office Visit [facility] Neurology [place] [address] [place] [phone] James Sandoval MD [address] [address] documented as of this encounter Visit Diagnoses Not on filedocumented in this encounter Care Teams Senior Packaging Engineer Relationship Specialty Start Date End Date Aicha Fuentes MD [address] [place] [address] PCP - General Internal Medicine 04/09/23 documented as of this encounter
--- OUTSIDE RECORDS SUMMARY | 2024-12-18 08:55 | XMS_ITS | Patient Health Record ---
Author Organization [facility] Address [address] [place] [address] Care Team Providers Care Infertility Nurse Name Role Phone Gina CUELLO, Aicha Moore Primary Care Provider Un available Chloe, Pete Unavailable [phone] Reason For Referral No Information Medications Medication [...] Status Risk Notes Problem Plantar fascial fibromatosis (19095981) Plantar fascial fibromatosis (M72.2) Active confirmed Plan Of Treatment Pending Test Test Name Order Date [id number] TENDON SHEATH/LIGAMENT 0 04/12/2018 Insurance Providers Payer Name Payer Address Payer Phone Subscriber Number Group Number Insured Name Patient Relationship to Insured Coverage Start Date Coverage End Date BlueCare 65 Medicare Preferred [address] [place] [address] [id number] Laura Jefferson Self - patient is the insured Medical (General) History Medical History History ICD Code Osteoporosis Measles Mumps Chicken pox Surgical History Surgery Date(Month/Year)
--- OUTSIDE RECORDS SUMMARY | 2024-12-18 08:55 | XMS_ITS | Encounter Summary ---
Author Organization [facility] Address [address] [place] [address] Care Team Providers Care Seafood Clerk Name Role Phone Aicha Fuentes MD Primary Care Provider [phone] Encounter Details Date Type Department Care Team (Late st Contact Info) Description 04/13/2023 Scanned Document [facility] MED RECORDS SCAN James Sandoval MD [address] [address] Social History Tobacco Use Types Packs/Day Years [...] Description 06/25/2025 11:30 AM EDT Office Visit [facility] Neurology [place] [address] [place] [address] James Sandoval MD [address] [address] documented as of this encounter Visit Diagnoses Not on filedocumented in this encounter Care Teams Seafood Clerk Relationship Specialty Start Date End Date Aicha Fuentes MD [address] [place] [address] PCP - General Internal Medicine 04/09/23 documented as of this encounter
[2024-12-18 10:21] LABS: MANUAL DIFF FLAG NO
[2024-12-18 10:24] LABS: Hematocrit 42.7 % (37.0-47.0); Hemoglobin 13.7 g/dl (12.0-16.0); Imm Gran Abs Auto 0.03 X10*3/uL (0.00-0.03); Imm Gran Pct Auto 0.4 % (0.0-0.4); Lymphocytes Absolute Auto 2.4 X10*3/uL (1.2-4.9); Mean Corpuscular HGB Conc 32.1 g/dl (31.0-35.0); Mean Corpuscular Hemoglobin 28.7 pg (27.0-33.0); Mean Corpuscular Volume 89.3 fL (80.0-98.0); NRBC Abs Auto 0.000 X10*3/uL (0.0-0.012); NRBC Pct Auto 0.0 /100WBC (0.0-0.2); Platelet Count 262 X10*3/uL (160-400); Red Blood Count 4.78 X10*6/uL (4.20-5.50); White Blood Count 6.8 X10*3/uL (4.8-10.8)
[2024-12-18 10:39] LABS: Alanine Aminotransferase 13 U/L (0-31); Anion Gap 11 (12-20); Aspartate Amino Transferase 23 U/L (5-31); Blood Urea Nitrogen 18 mg/dL (9-16); Calcium 8.9 mg/dL (8.4-10.2); Carbon Dioxide 30 mmol/L (22-29); Chloride 104 mmol/L (96-108); Cholesterol 229 mg/dL (<200); Estimated Glomerular Filt Rate > 60; HDL Cholesterol 46 mg/dL (>40); Potassium 3.9 mmol/L (3.3-5.1); Sodium 141 mmol/L (135-145); Triglycerides 129 mg/dL (<150)
[2024-12-18 11:06] LABS: Folate 13.1 ng/mL (> or = 4.0); Vitamin B12 547 pg/mL (200-900)
== END 2024-12-18 08:52 | disposition home or self-care (01) ==
LOC: HO.HMGCLDS 08:51
PROVIDERS: PCP Internal Medicine; Visit Provider Internal Medicine
DX: M81.0 Age-related osteoporosis without current pathological fracture (principal); E78.5 Hyperlipidemia, unspecified; G25.0 Essential tremor; R73.01 Impaired fasting glucose
CPT/HCPCS: 36415; 80048; 80061; 82306; 82607; 82746; 84450; 84460; 85025

== ENCOUNTER 2024-12-20 08:41 | Outpatient (AMB) | payer MEDICARE, SELFPAY ==
--- NOTE | 2024-12-20 08:48 | A.OFFPC_ITS ---
Vital Signs 12/20/24 09:03 Height 5 ft 3 in Weight 167 lb BMI 29.6 BP 92/70 Blood Pressure Location Lt brachial Position Sitting Respiration 16 Pulse 77 Pulse Source Pulse Oximeter Temp 98.0 F Temp Source Oral Pulse Oximetry (%) 96 Oxygen Delivery Method Room Air Intake Visit Reasons: PE - see comments Intake Note: Pt is here today for her PE: Last mammogram 10/18/24, bone density scan 10/18/24, bone denisty scan 10/18/24, colonoscopy 10/01/24 Rn Immunology Required: No Allergies No Known Allergies Allergy (Verified 12/20/24 09:13) Medication List - Last Reconciled 12/20/24 by Aicha Fuentes MD multivitamin with iron (Daily Vites/Iron tablet) 1 tab PO DAILY primidone 150 mg PO BEDTIME Tobacco use date assessed: 12/20/24 Fall risk assessment: 1 Fall in past year Last assessed Fall Risk: 12/20/24 Dental Screening Dental Screen Date: 12/20/24 Did you have a dental visit in the last 12 months?: Yes Did you have a dental problem in the last 6 months where you did not have access to dental care?: Yes Was dental information given to patient?: Patient has dentist HPI PE - see comments HPI Details 74 year-old lady with history of osteopo rosis, dyslipidemia, essential tremors and impaired fasting glucose , and keratoconus, here today for her physical exam. Up-to-date with her breast cancer screening, with mammogram done 2 months ago with benign findings. She also had a bone density scan the same time which showed presence of osteopenia, unchanged from previous test. No history of fractures. Cologuard testing done for colon cancer screening September 2024 which came back with negative findings. Blood pressure within normal limits. Latest fasting labs showed normal electrolytes, fasting glucose but LDL cholesterol is elevated higher than last check. Triglycerides however is within normal limits. [facility] Medical History (Updated 12/20/24 @ 09:32 by Aicha Fuentes MD) Osteopenia of multiple sites Keratoconus of both eyes Essential tremor Impaired fasting glucose Dyslipidemia Surgical History History of bilateral breast biopsy Family History Father CAD (coronary artery disease) Acute myocardial infarction Mother Breast cancer Uterine cancer Hypothyroidism Sister HTN (hypertension) Maternal Uncle Diabetes mellitus Paternal Uncle Diabetes mellitus Social History Housing: House Alcohol intake: never Patient Tobacco Use Status: Never used Tobacco e-Cigarette/Vaping Use: Never Used Second Hand Smoke Exposure: No service: No Current occupational status: retired Cognitive needs: No Hearing needs: No Vision needs: Yes Questionnaire PHQ-9 Over the last 2 weeks, how often have you been bothered by any of the following problems? 1. Little interest or pleasure in doing things: not at all 2. Feeling down, depressed, or hopeless: not at all 3. Trouble falling or staying asleep, or sleeping too much: not at all 4. Feeling tired or having little energy: not at all 5. Poor appetite or overeating: not at all 6. Feeling bad about yourself - or that you are a failure or have let yourself or your family down: not at all 7. Trouble concentrating on things, such as reading the newspaper or watching television: not at all 8. Moving or speaking so slowly that other people could have noticed. Or the opposite - being so fidgety or restless that you have been moving around a lot more than usual: not at all 9. Thoughts that you would be better off or of hurting yourself in some way: not at all Total score: 0 Depression Screening Interpretation: Negative Depression Screening Done: Yes Source: Developed by Drs. Myke Kamara, Olga Narayanan, Haja Hugo and colleagues, with an educational alecia from [employer]. Thrive Questionnaire Date Thrive assessed: 07/17/24 I am a: Patient What is your living situation today?: I have a steady place to live Within the past 12 months, did the food you bought not last and you didn't have the money to get more?: Never true Within the past 12 months, did you worry whether your food would run out before you got money to buy more?: Never true Do you have trouble paying for medicines?: No Do you have trouble getting transportation to medical appointments?: No Do you have trouble paying your heating and electricity bill?: No Do you have trouble taking care of your child, family member or friend?: No Do you have trouble with day-to-day activities such as bathing, preparing meals, shopping, managing finances, etc.?: No Are you currently unemployed and looking for a job?: No Are you interested in more education?: No Please select the resources that you would like help with: None Currently or been in a relationship where the following occur: No concerns reported THRIVE Score: 0 AUDIT C Alcohol Use Questionnaire (AUDIT-C) 1. How often do you have a drink containing alcohol?: Never 3. How often do you have six or more drinks on one occasion?: Never Total Score: 0 JASE-7 AMB Questionnaire JASE-7 Date JASE - 7 assessed: 07/17/24 Feeling nervous, anxious, or on edge: 0 = Not at all Not being able to stop or control worryin = Not at all Worrying too much about different things: 0 = Not at all Trouble relaxin = Not at all Being so restless that it is hard to sit still: 0 = Not at all Becoming easily annoyed or irritable: 0 = Not at all Feeling afraid as if something awful might happen: 0 = Not at all Total JASE-7 score (0-4 normal; 5-9 mild; 10-14 moderate; 15-21 severe): 0 Source: Developed by Drs. Myke Kamara, Olga Narayanan, Haja Hugo and colleagues, with an educational alecia from [employer]. Review of Systems Const Denies body aches, Denies fatigue, Denies fever(s), Denies headache(s) and Denies weakness Eyes Reports blurry vision (left eye) ENT Reports Normal hearing present, Denies dizziness, Denies headache(s) and Denies nasal congestion Card Denies chest pain, Denies lightheadedness, Denies palpitations and Denies dyspnea Resp Denies chest congestion, Denies cough, Denies dyspnea and Denies wheezing GI Denies abdominal pain, Denies change in bowel habits and Denies heartburn Reports no additional complaints Musc Denies back pain, Denies arthralgias, Denies joint swelling and Reports stiff ness Skin/Breast Denies pruritus, Denies lesions, Denies new lesions, Denies rash, Denies unusual bruising and Denies wounds Neuro Reports Normal hearing present, Denies dizziness, Denies headache(s), Denies Sensory deficit (Neuro), Reports tremor(s) (Controlled on primidone) and Denies weakness Psych Reports no additional complaints Endo Denies fatigue, Denies polydipsia, Denies polyuria and Denies palpitations Linden/Lymph Denies easy bruising Aller/Immun Denies seasonal rhinorrhea and Denies wheezing Physical exam (Primary Care) Vital Signs: Last Vital Signs Temp 98.0 F 12/20/24 09:03 Pulse 77 12/20/24 09:03 Resp 16 12/20/24 09:03 BP 92/70 12/20/24 09:03 Pulse Ox 96 12/20/24 09:03 Oxygen Delivery Method Room Air 12/20/24 09:03 BMI result Body Mass Index 29.6 Tobacco/Smoking Status: Tobacco use Status Tobacco use date assessed 12/20/24 12/20/24 09:07 Patient Tobacco Use Status Never used Tobacco 12/20/24 08:49 e-Cigarette/Vaping Use Never Used 12/20/24 08:49 PHQ-9: PHQ-9 Score PHQ-9: Total score 0 12/20/24 09:07 Depression Screening Interpretation: Negative Thrive Assessment: Date of Thrive Assessment Date Thrive assessed 07/17/24 12/20/24 08:49 Currently or been in a relationship where the following occur: No concerns reported Const General: comfortable and no acute distress Nutritional Appearance: overweight Orientation/consciousness: patient oriented x3 HENMT Mouth: Normal oral and palatal mucosa present and moist mucous membranes Eyes General: appearance normal, both eyes and all related structures Neck Neck: Yes full ROM, Yes no lymphadenopathy and Yes supple Thyroid: Thyroid normal Resp Effort & Inspection: normal respiratory effort and able to speak in complete sentences Auscultation: clear to auscultation bilaterally Cardio Rate: regular rate Rhythm: regular rhythm Heart sounds: S1 normal heart sound present and S2 normal heart sound present GI Palpation (GI): Soft to palpation, nontender and no guarding Auscultation: normal bowel sounds General: Yes no CVA tenderness Back/Spine/Pelvis Back: no CVA tenderness, sacral edema and No back tenderness Skin General skin exam: no rashes or lesions noted Neuro General: patient oriented x3, gait normal, tone normal, moves all extremities, Normal light touch and pain sensation, no focal motor deficits and CN's II-XI intact bilaterally Cranial nerves: Yes Normal hearing present Cognition (Neuro): normal cognition Gait exam (Neuro): Normal gait present Sensory Exam: No Sensory deficit (Neuro) Extrem General: Yes full ROM, Yes no joint enlargement, Yes no pedal edema and Yes normal gait Psych Appearance: grossly normal and well kempt Mental Status: mental status grossly normal Speech and movement: Normal speech and movement present Affect: normal affect Attitude: cooperative Results Reviewed Results Reviewed: RUN: 12/20/24 0916 PAGE 1 [facility] [address] [place] [id number] White Lead Filterer: Zelalem Clark M.D. Specimen Inquiry Name: Laura Llamas Age/Sex: 74/F : 1950 Unit#: [id number] Attend Dr: Aicha Fuentes MD Re12/18/24 Status: DEP REF Location: [facility] Disch: SPEC : [id number] TINO: 12/18/24 STATUS: COMP REQ : [id number] RECD: 12/18/[address]: Aicha Fuentes MD COMP: 12/18/24 ENTERED: 12/18/24 [facility] DR: ORDERED: CBC Auto Diff Test Result Flag Reference WBC 6.8 4.8-10.8 X10*3/uL RBC 4.78 4.20-5.50 X10*6/uL HGB 13.7 12.0-16.0 g/dl HCT 42.7 37.0-47.0 % MCV 89.3 80.0-98.0 fL MCH 28.7 27.0-33.0 pg MCHC 32.1 31.0-35.0 g/dl RDW 13.8 11.0-16.0 % PLT 262 160-400 X10*3/uL MPV 11.1 9.4-12.3 fL Neut Pct Auto 50.4 45-73 % ImGran Pct Auto 0.4 0.0-0.4 % Lymp Pct Auto 35.5 20-40 % Glynn Pct Auto 9.6 2-11 % Eos Pct Auto 3.1 0-4 % Baso Pct Auto 1.0 0-2 % NRBC Pct Auto 0.0 0.0-0.2 /100WBC ANC Neut Abs # 3.4 2.0-8.3 x10*3/uL ImGran Abs Auto 0.03 0.00-0.03 X10*3/uL Lymph Abs Auto 2.4 1.2-4.9 X10*3/uL Glynn Abs Auto 0.7 0.1-1.2 X10*3/uL Eos Abs Auto 0.2 0.0-0.4 X10*3/uL Baso Abs Auto 0.1 0.0-0.2 X10*3/uL NRBC Abs Auto 0.000 0.0-0.012 X10*3/uL Name: Laura Llamas Age/Sex: 74/F : 1950 Unit#: [id number] Attend Dr: Aicha Fuentes MD Re12/18/24 Status: DEP REF Location: [facility] Disch: SPEC : [id number] TINO: 12/18/24 STATUS: COMP REQ : [id number] RECD: 12/18/[address]: Aicha Fuentes MD COMP: 12/18/24 ENTERED: 12/18/[address]: ORDERED: Met Prof Fast, AST, ALT, Lipid Panel, Vitamin D 25-OH Test Result Flag Reference Sodium 141 135-145 mmol/L Potassium 3.9 3.3-5.1 mmol/L CL 104 96-108 mmol/L CO2 30 H 22-29 mmol/L Gap 11 L 12-20 BUN 18 H 9-16 mg/dL Creat 0.78 0.5-1.4 mg/dL eGFR > 60 Chronic Kidney Disease: Estimated GFR < 60 mL/min/1.73m2 Severe Kidney Disease: Estimated GFR < 15 mL/min/1.73m2 FBS 94 60-99 mg/dL CA 8.9 # 8.4-10.2 mg/dL AST (GOT) 23 5-31 U/L ALT (GPT) 13 0-31 U/L Triglyceride 129 <150 mg/dL Desirable Triglyceride: less than 150 mg/dL Borderline High Triglyceride 150-199 mg/dL High Triglyceride: 200-499 mg/dL Very High Triglyceride: greater than or equal to 5OO mg/dL Cholesterol 229 H <200 mg/dL Desirable Cholesterol: less than 200 mg/dL Borderline High Cholesterol: 200-239 mg/dL High Cholesterol: greater than 239 mg/dL LDL Calculated 158 H <100 mg/dL Desirable LDL: less than 100 mg/dL Near Optimal/Above Optimal LDL: 110-129 mg/dL Borderline High LDL: 130-159 mg/dL High LDL: 160-189 mg/dL Very High LDL: greater than or equal to 190 mg/dL HDL 46 >40 mg/dL Desirable HDL: greater than 40 mg/dL Note: This HDL assay may give artificially low results in patients with liver disease. Vitamin D 25-OH 52.8 >30 ng/mL Health Based Reference Values* < 20 ng/mL Deficient 20-30 ng/mL Insufficient > 30 ng/mL Sufficient Coding Level of Care Code Est Pt Prev Care >65y(60424) Diagnoses Annual visit for general adult medical examination with abnormal findings Z00.01 Osteopenia of multiple sites M85.89 Dyslipidemia E78.5 Impaired fasting glucose R73.01 Keratoconus of both eyes H18.603 Essential tremor G25.0 Assessment & Plan Assessment & Plan (1) Annual visit for general adult medical examination with abnormal findings: Code(s): Z00.01 - Encounter for general adult medical examination with abnormal findings Plan: Reviewed recent fasting lab results with patient. Recommended dental visit every 6 months and regular eye exams, sees Dr. Brunson. Take adequate calcium in diet and vitamin-D 3 at 2000 IU per cap once a day, in addition to weight- bearing exercises to help maintain good muscle tone and weight control. Instructed to do self-breast exam, and continue to get yearly mammogram, currently up-to-date. Up-to-date with her bone density scan.. Up-to-date with all her vaccines, reminded to get the new Prevnar 21 vaccine Cologuard testing came back negative this year, repeat again in 2027 (2) Osteopenia of multiple sites: Code(s): M85.89 - Other specified disorders of bone density and structure, multiple sites Category: Medical Plan: Stressed importance of doing regular weight-bearing exercise, advised to join the balance and osteoporosis exercise program at [facility] . Continue taking vitamin-D 3 supplements and adequate calcium for sources (3) Dyslipidemia: Code(s): E78.5 - Hyperlipidemia, unspecified Category: Medical Plan: Reviewed recent fasting lipid profile with patient with lower triglycerides but elevated LDL cholesterol as compared to last check. . Reinforced adherence to low-cholesterol diet and regular exercise, at least 30 minutes 3 to 4 times a week. Try to do more home cooked meals instead of eating frozen dinner. Advised patient to make healthy food choices, eat more fruits, vegetables, whole grains, wild caught fish and low-fat dairy. Limit amount of meat and fried or fatty food products, as well as processed foods and fast foods. Follow-up scheduled with repeat fasting lipid panel in 6 months. (4) Impaired fasting glucose: Code(s): R73.01 - Impaired fasting glucose Category: Medical Plan: Your previous fasting blood sugars were elevated above 100 mg/dL. Impaired glucose metabolism increases the risk for developing diabetes mellitus type 2, as well as heart attack and stroke later on. Lifestyle changes that promotes weight loss, healthy eating habits, and regular exercise are important, and can prevent the progression to diabetes (5) Keratoconus of both eyes: Code(s): H18.603 - Keratoconus, unspecified, bilateral Category: Medical Plan: Followed by Dr. Brunson (6) Essential tremor: Code(s): G25.0 - Essential tremor Category: Medical Plan: Now seeing a new neurologist at [facility] in [place] who recently increased her primidone do 150 mg daily Orders: Orders Lipid Panel 06/09/25 E78.5 - Hyperlipidemia, unspecified, M85.89 - Other specified disorders of bone density and structure, multiple sites, R73.01 - Impaired fasting glucose Alanine Aminotransferase 06/09/25 E78.5 - Hyperlipidemia, unspecified, M85.89 - Other specified disorders of bone density and structure, multiple sites, R73.01 - Impaired fasting glucose Vitamin D 25-OH Total 06/09/25 E78.5 - Hyperlipidemia, unspecified, M85.89 - Other specified disorders of bone density and structure, multiple sites, R73.01 - Impaired fasting glucose Aspartate Amino Transferase 06/09/25 E78.5 - Hyperlipidemia, unspecified, M85.89 - Other specified disorders of bone density and structure, multiple sites, R73.01 - Impaired fasting glucose Hemoglobin A1c 06/09/25 E78.5 - Hyperlipidemia, unspecified, M85.89 - Other specified disorders of bone density and structure, multiple sites, R73.01 - Impaired fasting glucose Glucose Fasting 06/09/25 E78.5 - Hyperlipidemia, unspecified, M85.89 - Other specified disorders of bone density and structure, multiple sites, R73.01 - Impaired fasting glucose
[2024-12-20 09:03] VITALS: BP 92/70; PULSE 77; RESP 16; TEMP 36.7; O2SAT 96; BMI 29.6
--- OUTSIDE RECORDS SUMMARY | 2024-12-20 09:11 | XMS_ITS | Patient Health Record ---
Author Organization [facility] Address [address] [place] [address] Care Team Providers Care Hospital Staff Pharmacist Name Role Phone iGna CUELLO, Aicha Moore Primary Care Provider Un available Chloe, Pete Unavailable [phone] Reason For Referral No Information Medications Medication [...] Status Risk Notes Problem Plantar fascial fibromatosis (23953053) Plantar fascial fibromatosis (M72.2) Active confirmed Plan Of Treatment Pending Test Test Name Order Date [id number] TENDON SHEATH/LIGAMENT 0 04/12/2018 Insurance Providers Payer Name Payer Address Payer Phone Subscriber Number Group Number Insured Name Patient Relationship to Insured Coverage Start Date Coverage End Date [employer] 65 Medicare Preferred [address] [place] [address] [phone] [id number] Laura Jefferson Self - patient is the insured Medical (General) History Medical History History ICD Code Osteoporosis Measles Mumps Chicken pox Surgical History Surgery Date(Month/Year)
--- OUTSIDE RECORDS SUMMARY | 2024-12-20 09:11 | XMS_ITS | Encounter Summary ---
Author Organization [facility] Address [address] [place] [address] Care Team Providers Care Alodize Machine Helper Name Role Phone Aicha Fuentes MD Primary Care Provider Encounter Details Date Type Department Care Team (Late st Contact Info) Description 04/13/2023 Scanned Document [facility] MED RECORDS SCAN James Sandoval MD [address] [address] Social History Tobacco Use Types Packs/Day Years [...] Encounters Date Type Department Care Team (Late Contact Info) Description 06/25/2025 11:30 AM EDT Office Visit [facility] Neurology [place] [address] [place] [address] James Sandoval MD [address] [address] documented as of this encounter Visit Diagnoses Not on filedocumented in this encounter Care Teams Alodize Machine Helper Relationship Specialty Start Date End Date Aicha Fuentes MD [address] [place] [address] PCP - General Internal Medicine 04/09/23 documented as of this encounter
--- OUTSIDE RECORDS SUMMARY | 2024-12-20 09:11 | XMS_ITS | Clinical Summary ---
Author Organization [facility] Address [address] [place] [address] [place] [phone] Phone Care Team Providers Care Email Engineer Name Role Phone Aicha Fuentes MD [...] Description 11/24/2024 8:30 AM EDT Office Visit [facility] Neurology [address] [place] [address] Adolph Fernández MD Essential tremor (Primary Dx) [...] Description 06/04/2025 9:00 AM EDT Office Visit [facility] Neurology [address] [place] [address] Adolph Fernández MD [address] [facility] [place] [address] [email or web address] Health Maintenance Due Date Last Done Comments [...] Devices Not on file Insurance Care Teams Email Engineer Relationship Specialty Start Date End Date Aicha Fuentes MD [address] [facility] [place] [address] PCP - General Internal Medicine 12/01/23 Additional Source Comments The information contained in this document represents components of the legal health record. It is not the complete legal health record.[facility]
--- OUTSIDE RECORDS SUMMARY | 2024-12-20 09:11 | XMS_ITS | Encounter Summary ---
Author Organization [facility] Address [address] [place] [address] Care Team Providers Care College President Name Role Phone Aicha Fuentes MD Primary Care Provider Encounter Details Date Type Department Care Team (Late st Contact Info) Description 04/14/2023 Scanned Document [facility] NEUROLOGY SCAN Neurology, Scan Social History Tobacco [...] Description 06/25/2025 11:30 AM EDT Office Visit [facility] Neurology [place] [address] [place] [phone] James Sandoval MD [address] [phone] documented as of this encounter Visit Diagnoses Not on filedocumented in this encounter Care Teams College President Relationship Specialty Start Date End Date Aicha Fuentes MD [address] [place] [address] PCP - General Internal Medicine 04/09/23 documented as of this encounter
--- OUTSIDE RECORDS SUMMARY | 2024-12-20 09:11 | XMS_ITS | Encounter Summary ---
Author Organization [facility] Address [address] [place] [address] Care Team Providers Care Targeteer Name Role Phone Aicha Fuentes MD Primary Care Provider Encounter Details Date Type Department Care Team (Late st Contact Info) Description 04/13/2023 Scanned Document [facility] MED RECORDS SCAN Medical Records, Scan [...] Description 06/25/2025 11:30 AM EDT Office Visit [facility] Neurology [place] [address] [place] [phone] James Sandoval MD [address] [phone] documented as of this encounter Visit Diagnoses Not on filedocumented in this encounter Care Teams Targeteer Relationship Specialty Start Date End Date Aicha Fuentes MD [address] [place] [address] PCP - General Internal Medicine 04/09/23 documented as of this encounter
--- OUTSIDE RECORDS SUMMARY | 2024-12-20 09:11 | XMS_ITS | Clinical Summary ---
Author Organization [facility] Address [address] [place] [address] Care Team Providers Care [email or web address] Android Developer Name Role Phone Aicha Fuentes MD Primary [...] Description 06/25/2025 11:30 AM EDT Office Visit [facility] Neurology [place] [address] [facility] [place] [address] James Sandoval MD [address] [facility] [address] [place], [place] [address] Health Maintenance Due Date Last Done Comments [...] 6 season) 2024 06/11/2020, 05/21/2020 RSV Vaccine 50 years and older and Patients (1 - 1-dose 75+ series) 12/14/2027 Hepatitis B Vaccines Aged Out No long er eligible based on patient's age to complete this topic Insurance [employer] MEDICARE OUT OF NETWORK Care Teams [email or web address] Android Developer Relationship Specialty Start Date End Date Aicha Fuentes MD [address] [place] [id number] PCP - General Internal Medicine 04/09/23
== END 2024-12-20 09:32 | disposition home or self-care (01) ==
LOC: HO.HMCC 08:42
PROVIDERS: PCP Internal Medicine; Visit Provider Internal Medicine
DX: Z00.01 Encounter for general adult medical examination with abnormal findings (principal); M85.89 Other specified disorders of bone density and structure, multiple sites; E78.5 Hyperlipidemia, unspecified; R73.01 Impaired fasting glucose; H18.603 Keratoconus, unspecified, bilateral; G25.0 Essential tremor

== ENCOUNTER → 2024-12-20 08:41 | Outpatient (BNVA) | payer MEDICARE, SELFPAY | PROVIDERS: PCP Internal Medicine; Visit Provider Internal Medicine | DX: Z00.01 Encounter for general adult medical examination with abnormal findings (principal); E78.5 Hyperlipidemia, unspecified; G25.0 Essential tremor; R73.01 Impaired fasting glucose; M85.89 Other specified disorders of bone density and structure, multiple sites; H18.603 Keratoconus, unspecified, bilateral | CPT/HCPCS: 96127; 99397 ==